=== PATIENT | female | born 1995 | race Caucasian/White ===

== ENCOUNTER 2017-06-29 17:07 | Emergency (ER) | payer MEDICAID ==
[2017-06-29] MEDS ORDERED: diphenhydrAMINE 50 MG/ML SDV IM ONE (17:45)
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
== END 2017-06-29 18:16 | disposition home or self-care (01) ==
LOC: JP.ED 17:07
DX: T78.1XXA Other adverse food reactions, not elsewhere classified, initial encounter (principal); L29.9 Pruritus, unspecified
CPT/HCPCS: 96372; 99283; J1200

== ENCOUNTER 2017-08-20 08:54 | Emergency (ER) | payer MEDICAID ==
[2017-08-20] MEDS ORDERED: Ondansetron 4 MG/2 ML SDV IVPUSH ONE (09:19)
[2017-08-20] MEDS ORDERED: Morphine 4 MG/ML Syringe IVPUSH ONE (09:19)
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
[2017-08-20] MEDS ORDERED: Iopamidol 612 MG/ML 100 ML Bottle IV PRN (10:14)
[2017-08-20] MEDS ORDERED: Sodium Chloride 0.9% 10 ML Syringe FLUSH PRN (10:14)
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
== END 2017-08-20 12:30 | disposition home or self-care (01) ==
LOC: JP.ED 08:54
DX: S30.0XXA Contusion of lower back and pelvis, initial encounter (principal); V49.40XA Driver injured in collision with unspecified motor vehicles in traffic accident, initial encounter
CPT/HCPCS: 36415; 71260; 74177; 80048; 84703; 85025; 96374; 99284; 99285; J2270; J2405; J7030; J7050; Q9967

== ENCOUNTER 2018-01-19 16:37 | Emergency (ER) | payer MEDICAID ==
--- NOTE | 2018-01-19 17:48 | EDM.PDOC ---
ED HPI GENERAL MEDICAL PROBLEM - General Chief Complaint: Respiratory Problem Stated Complaint: CHEST PAINS Time Seen by Provider: 01/19/18 17:25 Source of Information: Reports: Patient, Family History Limitations: Reports: No Limitations - History of Present Illness INITIAL COMMENTS - FREE TEXT/NARRATIVE: 22-year-old female that has had a no significant fevers or chills, no nausea or vomiting. She does have decreased appetite. sore throat and a cough for the past 3 days. She had difficulty sleeping last night because it hurts so bad. Onset: Gradual (Over the past 3 days) Severity: Mild Associated Symptoms: Reports: Cough, Malaise. 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 Denies: Fever, Chills HEENT: Reports: Throat Pain. Denies: Ear Pain, Rhinitis, Throat Swelling Respiratory: Reports: Cough. Denies: Shortness of Breath Cardiovascular: Denies: Chest Pain GI/Abdominal: Denies: Abdominal Pain, Nausea, Vomiting : Reports: No Symptoms Skin: Reports: No Symptoms Neurological: Denies: Headache Psychiatric: Reports: No Symptoms ED EXAM, GENERAL - Physical Exam Exam: See Below Exam Limited By: No Limitations General Appearance: Alert, No Apparent Distress Eye Exam: Bilateral Eye: Normal Inspection Ears: Normal TMs Throat/Mouth: Normal Inspection Head: Atraumatic Neck: No: Lymphadenopathy (R), Lymphadenopathy (L) Respiratory/Chest: No Respiratory Distress Cardiovascular: Regular Rate, Rhythm Course - Vital Signs Last Recorded V/S: Last Vital Signs Temp 98.4 F 01/19/18 17:03 Pulse 52 L 01/19/18 17:03 Resp 16 01/19/18 17:03 BP 113/41 L 01/19/18 17:03 Pulse Ox 98 01/19/18 17:03 - Orders/Labs/Meds Orders: Active Orders 24 hr Category Date Time Status CULTURE STREP A CONFIRMATION [RM] Routine Lab 01/19/18 17:49 Results STREP SCRN A RAPID W CULT CONF [RM] Routine Lab 01/19/18 17:49 Ordered - Re-Assessments/Exams Free Text/Narrative Re-Assessment/Exam: 01/20/18 07:27 Rapid strep was obtained and is negative. Explained to patient this is a viral illness and will have to resolve on its own. Was recommended she use ibuprofen, [id number] throat lozenges and get plenty of fluids and rest. She can return if worsening. Departure - Departure Time of Disposition: 18:57 Disposition: Home, Self-Care 01 Condition: Good Clinical Impression: Viral pharyngitis - Discharge Information Instructions: Viral Illness, Adult Referrals: Juani Escobar CNM [Primary Care Provider] - Forms: ED Department Discharge Care Plan Goals: Drink lots of water, ibuprofen or lozenges for pain and recheck in 2-3 days if not improving satisfactorily. Get plenty of rest. - My Orders Last 24 Hours: My Active Orders 01/19/18 17:49 CULTURE STREP A CONFIRMATION [RM] Routine STREP SCRN A RAPID W CULT CONF [RM] Routine - Assessment/Plan Last 24 Hours: My Active Orders 01/19/18 17:49 CULTURE STREP A CONFIRMATION [RM] Routine STREP SCRN A RAPID W CULT CONF [RM] Routine
== END 2018-01-19 18:58 | disposition home or self-care (01) ==
LOC: JP.ED 16:37
DX: O99.512 Diseases of the respiratory system complicating pregnancy, second trimester (principal); J02.9 Acute pharyngitis, unspecified; Z79.899 Other long term (current) drug therapy; Z3A.18 18 weeks gestation of pregnancy
CPT/HCPCS: 87081; 87430; 99285

== ENCOUNTER 2018-06-16 06:29 | Inpatient (IN) | payer MEDICAID ==
[2018-06-16] MEDS ORDERED: Acetaminophen 325 MG Tab PO PRN ×2 (06:56→23:52)
[2018-06-16] MEDS ORDERED: Ondansetron 4 MG/2 ML SDV IV PRN (06:56)
[2018-06-16] MEDS ORDERED: Sodium Chloride 0.9% 10 ML Syringe FLUSH PRN (06:56)
[2018-06-16] MEDS ORDERED: Misoprostol 50 MCG (1/2 of 100 MCG) Tab VAG ONE ×2 (07:00→15:45)
[2018-06-16] MEDS ORDERED: Misoprostol 25 MCG (1/4 of 100 MCG) Tab ONE (09:50)
[2018-06-16] MEDS ORDERED: Penicillin G Potassium 5 MILLUNITS in Sodium Chloride 0.9% 50 ML IV ONE (11:00)
[2018-06-16] MEDS ORDERED: Misoprostol 25 MCG (1/4 of 100 MCG) Tab VAG STA (11:15)
[2018-06-16] MEDS: Penicillin G Potassium 2.5 MILLUNITS in Sodium Chloride 0.9% 50 ML IV SCH ×3 (14:58→22:56)
[2018-06-16] MEDS ORDERED: Lactated Ringers 1,000 ML IV ONE (17:25)
--- NOTE | 2018-06-16 17:49 | PCM.LDHP ---
L&D History of Present Illness - General Date of Service: 06/16/18 Admit Problem/Dx: Patient Status Order with Admit Dx/Problem 06/16/18 06:56 Patient Status [ADT] Routine Admission Diagnosis/Problem Admission Diagnosis/Problem Source of Information: Patient History Limitations: Reports: No Limitations - Related Data Allergies/Adverse Reactions: Allergies Allergy/AdvReac Type Severity Reaction Status Date / Time blueberry Allergy Swelling Verified 06/15/18 10:10 Home Medications: Home Meds Albuterol [Ventolin HFA] 2 puff INH BID PRN 08/20/17 [History] Sertraline [Zoloft] 25 mg PO DAILY 01/19/18 [History] PNV95/Ferrous Fumarate/FA [ Tablet] 1 tab PO DAILY 02/15/18 [History] Ascorbate Calcium [Vitamin C] 500 mg PO DAILY 05/13/18 [History] Polyethylene Glycol 3350 [Miralax] 17 gm PO DAILY 05/13/18 [History] Past Medical History HEENT History: Reports: Otitis Media Respiratory History: Reports: Asthma 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: Musculoskeletal History: Reports: Other (See Below) Other Musculoskeletal History: acute back pain s/p fall at work on Sunday morning Psychiatric History: Reports: ADHD - Infectious Disease History Infectious Disease History: Reports: Chicken Pox - Past Surgical History HEENT Surgical History: Reports: Myringotomy w Tube(s) Respiratory Surgical History: Reports: None Social & Family History - Family History Family Medical History: Noncontributory - Tobacco Use Smoking Status *Q: Never Smoker Second Hand Smoke Exposure: No - Caffeine Use Caffeine Use: Reports: None - Recreational Drug Use Recreational Drug Use: No H&P Review of Systems - Review of Systems: Review Of Systems: See Below General: Reports: Fatigue HEENT: Reports: Headaches, Visual Changes (spots occasionally) Pulmonary: Reports: No Symptoms Cardiovascular: Reports: Edema Gastrointestinal: Reports: No Symptoms Genitourinary: Reports: No Symptoms Musculoskeletal: Reports: No Symptoms Skin: Reports: No Symptoms Psychiatric: Reports: No Symptoms Neurological: Reports: No Symptoms Hematologic/Lymphatic: Reports: No Symptoms Immunologic: Reports: No Symptoms L&D Exam - Exam Exam: See Below - Vital Signs Vital Signs: Last Vital Signs Temp 36.9 C 06/16/18 16:30 Pulse 82 06/16/18 16:30 Resp 16 06/16/18 16:30 BP 130/67 06/16/18 16:30 Pulse Ox 97 06/16/18 16:30 Weight: 96.615 kg - OB Specific Contraction Duration (sec): 50-60 Contraction Frequency (min): 1.5-2 Contraction Intensity: Moderate to Strong Heart Rate (FHR) Variability: Moderate (6-25 bmp) Presentation: Vertex - Brannon Score Brannon Score Cervix Position: Midposition Brannon Score Consistency: Soft Brannon Score Effacement: 51-70% Brannon Score Dilation: 1-2 cm Brannon Score Infant's Station: -2 Brannon Score Total: 7 - Exam General: Alert, Oriented HEENT: PERRLA, Conjunctiva Clear, EACs Clear, EOMI, Hearing Intact, Mucosa Moist & Metter, Nares Patent, Normal Nasal Septum, Posterior Pharynx Clear, TMs Clear Neck: Supple, Trachea Midline Lungs: Clear to Auscultation, Normal Respiratory Effort Cardiovascular: Regular Rate, Regular Rhythm GI/Abdominal Exam: Normal Bowel Sounds, Soft, Non-Tender, No Organomegaly, No Distention, No Abnormal Bruit, No Mass, Pelvis Stable Rectal Exam: Normal Exam, Normal Rectal Tone Genitourinary: Normal external exam, Normal bimanual exam, Normal speculum exam Back Exam: Normal Inspection, Full Range of Motion Extremities: Normal Inspection, Normal Range of Motion, Non-Tender, Normal Capillary Refill, Other (2-3+ edema bilateral extremities, moonface noted also) Skin: Warm, Dry, Intact Neurological: Cranial Nerves Intact, Reflexes Equal Bilateral DTR: 2+: Patella (L), Patella (R) Psychiatric: Alert, Normal Affect, Normal Mood - Patient Data Lab Results Last 24 hrs: Laboratory Results - last 24 hr 06/16/18 06/16/18 06/16/18 Range/Units 06:56 07:13 07:13 WBC 10.0 (4.5-11.0) K/uL RBC 3.88 (3.30-5.50) M/uL Hgb 11.6 L (12.0-15.0) g/dL Hct 35.1 L (36.0-48.0) % MCV 91 (80-98) fL MCH 30 (27-31) pg MCHC 33 (32-36) % Plt Count 188 (150-400) K/uL Neut % (Auto) 66 (36-66) % Lymph % (Auto) 22 L (24-44) % Crawford % (Auto) 11 H (2-6) % Eos % (Auto) 1 L (2-4) % Baso % (Auto) 0 (0-1) % Sodium 140 (140-148) mmol/L Potassium 4.1 (3.6-5.2) mmol/L Chloride 106 (100-108) mmol/L Carbon Dioxide 25 (21-32) mmol/L Anion Gap 9.3 (5.0-14.0) mmol/L BUN 12 (7-18) mg/dL Creatinine 0.7 (0.6-1.0) mg/dL Est Cr Clr Drug Dosing TNP Estimated GFR (MDRD) > 60 (>60) Glucose 87 (74-106) mg/dL Uric Acid (2.6-6.2) mg/dL Calcium 9.4 (8.5-10.1) mg/dL Total Bilirubin 0.1 L (0.2-1.0) mg/dL AST 12 L (15-37) U/L ALT 18 (12-78) U/L Alkaline Phosphatase 92 (46-116) U/L Lactate Dehydrogenase 158 (82-234) U/L Total Protein 5.9 L (6.4-8.2) g/dL Albumin 2.4 L (3.4-5.0) g/dL Globulin 3.5 (2.3-3.5) g/dL Albumin/Globulin Ratio 0.7 L (1.2-2.2) Urine Color Yellow Urine Appearance Slightly cloudy Urine pH 7.0 (4.5-8.0) Ur Specific [place] 1.010 (1.008-1.030) Urine Protein Negative (NEGATIVE) mg/dL Urine Glucose (UA) Normal (NEGATIVE) mg/dL Urine Ketones Negative (NEGATIVE) mg/dL Urine Occult Blood Negative (NEGATIVE) Urine Nitrite Negative (NEGATIVE) Urine Bilirubin Negative (NEGATIVE) Urine Urobilinogen Normal (NORMAL) mg/dL Ur Leukocyte Esterase Large (NEGATIVE) Urine RBC Not seen (0-5) Urine WBC 20-30 H (0-5) Ur Epithelial Cells Many Amorphous Sediment Not seen Urine Bacteria Many Urine Mucus Not seen Urine Opiates Screen (NEGATIVE) Ur Oxycodone Screen (NEGATIVE) Urine Methadone Screen (NEGATIVE) Ur Propoxyphene Screen (NEGATIVE) Ur Barbiturates Screen (NEGATIVE) Ur Tricyclics Screen (NEGATIVE) Ur Phencyclidine Scrn (NEGATIVE) Ur Amphetamine Screen (NEGATIVE) U Methamphetamines Scrn (NEGATIVE) Urine MDMA Screen (NEGATIVE) U Benzodiazepines Scrn (NEGATIVE) U Cocaine Metab Screen (NEGATIVE) U Marijuana (THC) Screen (NEGATIVE) 06/16/18 06/16/18 Range/Units 07:13 08:04 WBC (4.5-11.0) K/uL RBC (3.30-5.50) M/uL Hgb (12.0-15.0) g/dL Hct (36.0-48.0) % MCV (80-98) fL MCH (27-31) pg MCHC (32-36) % Plt Count (150-400) K/uL Neut % (Auto) (36-66) % Lymph % (Auto) (24-44) % Crawford % (Auto) (2-6) % Eos % (Auto) (2-4) % Baso % (Auto) (0-1) % Sodium (140-148) mmol/L Potassium (3.6-5.2) mmol/L Chloride (100-108) mmol/L Carbon Dioxide (21-32) mmol/L Anion Gap (5.0-14.0) mmol/L BUN (7-18) mg/dL Creatinine (0.6-1.0) mg/dL Est Cr Clr Drug Dosing Estimated GFR (MDRD) (>60) Glucose (74-106) mg/dL Uric Acid 5.5 (2.6-6.2) mg/dL Calcium (8.5-10.1) mg/dL Total Bilirubin (0.2-1.0) mg/dL AST (15-37) U/L ALT (12-78) U/L Alkaline Phosphatase (46-116) U/L Lactate Dehydrogenase (82-234) U/L Total Protein (6.4-8.2) g/dL Albumin (3.4-5.0) g/dL Globulin (2.3-3.5) g/dL Albumin/Globulin Ratio (1.2-2.2) Urine Color Urine Appearance Urine pH (4.5-8.0) Ur Specific [place] (1.008-1.030) Urine Protein (NEGATIVE) mg/dL Urine Glucose (UA) (NEGATIVE) mg/dL Urine Ketones (NEGATIVE) mg/dL Urine Occult Blood (NEGATIVE) Urine Nitrite (NEGATIVE) Urine Bilirubin (NEGATIVE) Urine Urobilinogen (NORMAL) mg/dL Ur Leukocyte Esterase (NEGATIVE) Urine RBC (0-5) Urine WBC (0-5) Ur Epithelial Cells Amorphous Sediment Urine Bacteria Urine Mucus Urine Opiates Screen Negative (NEGATIVE) Ur Oxycodone Screen Negative (NEGATIVE) Urine Methadone Screen Negative (NEGATIVE) Ur Propoxyphene Screen Negative (NEGATIVE) Ur Barbiturates Screen Negative (NEGATIVE) Ur Tricyclics Screen Negative (NEGATIVE) Ur Phencyclidine Scrn Negative (NEGATIVE) Ur Amphetamine Screen Negative (NEGATIVE) U Methamphetamines Scrn Negative (NEGATIVE) Urine MDMA Screen Negative (NEGATIVE) U Benzodiazepines Scrn Negative (NEGATIVE) U Cocaine Metab Screen Negative (NEGATIVE) U Marijuana (THC) Screen Negative (NEGATIVE) Result Diagrams: 06/16/18 07:13 06/16/18 07:13 - Problem List (1) Gestational hypertension SNOMED Code(s): 663633347, 095141904 ICD Code: O13.9 - GESTATIONAL HTN W/O SIGNIFICANT PROTEINURIA, UNSP TRIMESTER Status: Acute Current Visit: Yes Qualifiers: Trimester: third trimester Qualified Code(s): O13.3 - Gestational [ -induced] hypertension without significant proteinuria, third trimester (2) Headache SNOMED Code(s): 90351660 ICD Code: R51 - HEADACHE Status: Acute Current Visit: Yes (3) Edema SNOMED Code(s): 041602542, 865840656 ICD Code: R60.9 - EDEMA, UNSPECIFIED Status: Acute Current Visit: Yes Qualifiers: Edema type: gestational Trimester: third trimester Qualified Code(s): O12.03 - Gestational edema, third trimester (4) Abnormal weight gain during SNOMED Code(s): 384211140 ICD Code: O26.00 - EXCESSIVE WEIGHT GAIN IN , UNSPECIFIED TRIMESTER Status: Acute Current Visit: Yes (5) SNOMED Code(s): 09816840 ICD Code: Z34.90 - ENCNTR FOR SUPRVSN OF NORMAL , UNSP, UNSP TRIMESTER Status: Acute Current Visit: Yes Qualifiers: Weeks of gestation: 40 weeks Qualified Code(s): Z3A.40 - 40 weeks gestation of (6) Encounter for induction of labor SNOMED Code(s): 713170331 ICD Code: Z34.90 - ENCNTR FOR SUPRVSN OF NORMAL , UNSP, UNSP TRIMESTER Status: Acute Current Visit: Yes Problem List Initiated/Reviewed/Updated: Yes Orders Last 24hrs: Active Orders 24 hr Category Date Time Status Patient Status [ADT] Routine ADT 06/16/18 06:56 Active Communication Order [RC] ASDIRECTED Care 06/16/18 06:56 Active Communication Order [RC] Per Unit Routine Care 06/16/18 17:26 Ordered Non Stress Test [RC] Click to Edit Care 06/16/18 06:56 Active Insert Urinary Catheter [OM.PC] ASDIRECTED Care 06/16/18 17:30 Ordered Local Anesthetic Infusion Pump [RC] ASDIRECTED Care 06/16/18 17:26 Ordered May Shower [RC] ASDIRECTED Care 06/16/18 06:56 Active Notify Provider Vital Signs [RC] PRN Care 06/16/18 06:56 Active Notify Provider [RC] PRN Care 06/16/18 06:56 Active PCEA Epidural [RC] ASDIRECTED Care 06/16/18 17:26 Ordered PCEA Epidural [RC] ASDIRECTED Care 06/16/18 17:26 Ordered Up ad Jazmin [RC] ASDIRECTED Care 06/16/18 06:56 Active Urinary Catheter Assessment [RC] ASDIRECTED Care 06/16/18 17:26 Ordered VTE/DVT Education [RC] Click to Edit Care 06/16/18 06:57 Active Verify Patient Consent Obtain [RC] ASDIRECTED Care 06/16/18 17:26 Ordered Vital Signs [RC] PER UNIT ROUTINE Care 06/16/18 06:56 Active Regular Diet [DIET] Diet 06/16/18 Breakfast Active Acetaminophen [Tylenol] Med 06/16/18 06:56 Active 650 mg PO Q4H PRN Lactated Ringers [Ringers, Lactated] 1,000 ml Med 06/16/18 17:25 Ordered IV ONETIME Ondansetron [Zofran] Med 06/16/18 06:56 Active 4 mg IV Q4H PRN Penicillin G Potassium [Pfizerpen] 2.5 millunits Med 06/16/18 15:00 Active Sodium Chloride 0.9% [Normal Saline] 50 ml IV Q4H Sodium Chloride 0.9% [Saline Flush] Med 06/16/18 06:56 Active 10 ml FLUSH ASDIRECTED PRN ePHEDrine [ePHEDrine sulfate] Med 06/16/18 17:25 Once 5 mg IVPUSH ONETIME ONE DVT/VTE Prophylaxis Reflex [OM.PC] Routine Oth 06/16/18 06:56 Ordered Epidural Catheter Management [OM.PC] Urgent Oth 06/16/18 17:26 Ordered Saline Lock Insert [OM.PC] Routine Oth 06/16/18 06:56 Ordered Resuscitation Status Routine Resus Stat 06/16/18 06:56 Ordered Medication Orders Acetaminophen (Tylenol) 650 mg PO Q4H PRN PRN Reason: Pain (Mild 1-3) and fever Penicillin G Potassium 2.5 (millunits/ Sodium Chloride) 50 mls @ 100 mls/hr IV Q4H CHRIS Last Admin: 06/16/18 14:58 Dose: 100 mls/hr Ondansetron HCl (Zofran) 4 mg IV Q4H PRN PRN Reason: Nausea/Vomiting Sodium Chloride (Saline Flush) 10 ml FLUSH ASDIRECTED PRN PRN Reason: Keep Vein Open Assessment/Plan Comment:: 06/16/2018 22 yo here at 40 0/7 gestational weeks for a medical induction due to gestational hypertensions, pre-eclampsia, elevated 24 hour protein, and 20+ weight gain in less than three weeks, on 06/16/2018 SVE-1/70/-2 FHTs category one Contractions irregular Cytotec placed vaginally Plan- Monitor for active labor Monitor FHTs Monitor vital signs closely, reflexes and clonus regularly CBC, CMP,LDH, UA Pain management per patient request Plan on placing another cytotec later Plan and anticipate a vaginal delivery
--- NOTE | 2018-06-16 17:54 | PCM.PNLD ---
Labor Progress Note - VS & Meds Vital Signs: Last Vital Signs Temp 36.8 C 06/16/18 17:30 Pulse 82 06/16/18 17:30 Resp 16 06/16/18 17:30 BP 144/72 H 06/16/18 17:30 Pulse Ox 94 L 06/16/18 17:30 Active Medications: Current Medications Acetaminophen (Tylenol) 650 mg PO Q4H PRN PRN Reason: Pain (Mild 1-3) and fever Penicillin G Potassium 2.5 (millunits/ Sodium Chloride) 50 mls @ 100 mls/hr IV Q4H CHRIS Last Admin: 06/16/18 14:58 Dose: 100 mls/hr Lactated Ringer's (Ringers, Lactated) 1,000 mls @ 999 mls/hr IV ONETIME ONE Stop: 06/16/18 18:25 Ondansetron HCl (Zofran) 4 mg IV Q4H PRN PRN Reason: Nausea/Vomiting Sodium Chloride (Saline Flush) 10 ml FLUSH ASDIRECTED PRN PRN Reason: Keep Vein Open Discontinued Medications Ephedrine Sulfate (Ephedrine Sulfate) 5 mg IVPUSH ONETIME ONE Stop: 06/16/18 17:26 Penicillin G Potassium 5 (millunits/ Sodium Chloride) 50 mls @ 100 mls/hr IV ONETIME ONE Stop: 06/16/18 11:29 Last Admin: 06/16/18 10:57 Dose: 100 mls/hr Misoprostol (Cytotec) 50 mcg VAG ONETIME ONE Stop: 06/16/18 07:01 Last Admin: 06/16/18 11:14 Dose: Not Given Misoprostol (Cytotec) Confirm Administered Dose 25 mcg .ROUTE .STK-MED ONE Stop: 06/16/18 09:51 Last Admin: 06/16/18 11:15 Dose: Not Given Misoprostol (Cytotec) 25 mcg VAG ONETIME STA Stop: 06/16/18 11:16 Last Admin: 06/16/18 10:00 Dose: 25 mcg Misoprostol (Cytotec) 50 mcg VAG ONETIME ONE Stop: 06/16/18 15:46 Last Admin: 06/16/18 15:57 Dose: 50 mcg - Uterine Contractions Uterine Monitoring Mode: External [place] Contraction Frequency (min): 1.5-2 Contraction Duration (sec): 50-60 Contraction Intensity: Moderate to Strong Uterine Resting Tone: Soft - Monitoring Heart Rate (FHR) Variability: Moderate (6-25 bmp) - Vaginal Exam Dilation (cm): 3 Effacement (Percent): 70 Station: -2 Cervical Position: Midposition Sterile Vaginal Exam Performed By: Juani Escobar - Labor Progress (Free Text) Labor Progress: 06/16/2018 Patient progressing nicely SVE-3/70/-2 Cytotec placed vaginally FHTs category one Contractions getting more regular Patient tolerating pain with movement and position change Plan- Continue to monitor for active labor Continue to monitor FHTs Pain management per patient request Patient may eat regular diet Up ad choco Will start pitocin in four hours per protocol if no active labor Plan and anticipate a vaginal delivery
[2018-06-16] MEDS ORDERED: Ropivacaine 200 MG in Premix Bag 1 BAG EPIDUR SCH (19:45)
[2018-06-16] MEDS ORDERED: Lactated Ringers 1,000 ML IV SCH (20:00)
[2018-06-16] MEDS: ePHEDrine 50 MG/ML SDV IVPUSH ONE ×2 (20:43→21:12)
[2018-06-16] MEDS ORDERED: Lanolin 100% Cream 40 GM Tube TOP PRN (23:52)
[2018-06-16] MEDS ORDERED: Benzocaine 20% Top Spray 56 GM Bottle TOP PRN (23:52)
[2018-06-16] MEDS ORDERED: Ibuprofen 200 MG Tab, 24 Tab Bulk Bottle PO PRN (23:52)
[2018-06-16] MEDS ORDERED: Witch Hazel Medicated Pads 100/Jar TOP PRN (23:52)
--- NOTE | 2018-06-17 00:12 | PCM.DEL ---
L & D Note - General Info Date of Service: 06/16/18 Mother's Due Date: 06/16/18 - Delivery Note Cervical Ripening Method: Misoprostil Delivery Outcome: Livebirth Delivery Method: Spontaneous Vaginal Delivery-Single Delivery Mode: Spontaneous Presentation: Left Occiput Anterior (NICKO) Nuchal Cord: None Anesthesia Type: Epidural Laceration: None Placenta: Intact, Spontaneous Cord: 3 Vessels Estimated Blood Loss: 300 Resuscitation Needed: No Lillie: Stimulated, Warmed, [place] Used Provider: Juani Escobar Score 1 min: 9 Score 5 min: 9 Second Stage Interventions: Reports: Encouragement Given, Pushing Effectively, Pushing, McRobert's Position Delivery Comments (Free Text/Narrative):: 06/16/2018 22 yo delivered a viable male normal spontaneous vaginal delivery on 06/16/2018 at 2328 in NICKO position over an intact perineum. Infant was then placed on prewarmed blanket on mothers abdomen, was stimulated, dried, and warmed. then began to pink in color and cry vigorously. Cord then double clamped and cut after delayed cord clamping. APGARS-9/9, weight-7lbs 8.2oz, length-19.9 inches, Placenta spontaneous and intact, three vessel cord. EBL-300ml. No lacerations noted of cervix, vagina, perineum, or rectum. Infant now skin to skin and stable with mother in labor and delivery room. Stages- [id number] - General Info Date of Service: 06/16/18 Functional Status: Reports: Pain Controlled - Review of Systems General: Reports: No Symptoms HEENT: Reports: Headaches Pulmonary: Reports: No Symptoms Cardiovascular: Reports: Edema Gastrointestinal: Reports: No Symptoms Genitourinary: Reports: No Symptoms Musculoskeletal: Reports: No Symptoms Skin: Reports: No Symptoms Neurological: Reports: No Symptoms Psychiatric: Reports: No Symptoms - Patient Data Vitals - Most Recent: Last Vital Signs Temp 36.9 C 06/16/18 20:11 Pulse 76 06/16/18 20:21 Resp 18 06/16/18 20:21 BP 135/61 06/16/18 20:21 Pulse Ox 96 06/16/18 20:21 Weight - Most Recent: 96.615 kg I&O - Last 24 Hours: Intake & Output 06/16/18 06/16/18 06/17/18 14:59 22:59 06:59 Intake Total 1932 Balance 1932 Lab Results Last 24 Hours: Laboratory Results - last 24 hr 06/16/18 06/16/18 06/16/18 Range/Units 06:56 07:13 07:13 WBC 10.0 (4.5-11.0) K/uL RBC 3.88 (3.30-5.50) M/uL Hgb 11.6 L (12.0-15.0) g/dL Hct 35.1 L (36.0-48.0) % MCV 91 (80-98) fL MCH 30 (27-31) pg MCHC 33 (32-36) % Plt Count 188 (150-400) K/uL Neut % (Auto) 66 (36-66) % Lymph % (Auto) 22 L (24-44) % [place] % (Auto) 11 H (2-6) % Eos % (Auto) 1 L (2-4) % Baso % (Auto) 0 (0-1) % Sodium 140 (140-148) mmol/L Potassium 4.1 (3.6-5.2) mmol/L Chloride 106 (100-108) mmol/L Carbon Dioxide 25 (21-32) mmol/L Anion Gap 9.3 (5.0-14.0) mmol/L BUN 12 (7-18) mg/dL Creatinine 0.7 (0.6-1.0) mg/dL Est Cr Clr Drug Dosing TNP Estimated GFR (MDRD) > 60 (>60) Glucose 87 (74-106) mg/dL Uric Acid (2.6-6.2) mg/dL Calcium 9.4 (8.5-10.1) mg/dL Total Bilirubin 0.1 L (0.2-1.0) mg/dL AST 12 L (15-37) U/L ALT 18 (12-78) U/L Alkaline Phosphatase 92 (46-116) U/L Lactate Dehydrogenase 158 (82-234) U/L Total Protein 5.9 L (6.4-8.2) g/dL Albumin 2.4 L (3.4-5.0) g/dL Globulin 3.5 (2.3-3.5) g/dL Albumin/Globulin Ratio 0.7 L (1.2-2.2) Urine Color Yellow Urine Appearance Slightly cloudy Urine pH 7.0 (4.5-8.0) Ur Specific [place] 1.010 (1.008-1.030) Urine Protein Negative (NEGATIVE) mg/dL Urine Glucose (UA) Normal (NEGATIVE) mg/dL Urine Ketones Negative (NEGATIVE) mg/dL Urine Occult Blood Negative (NEGATIVE) Urine Nitrite Negative (NEGATIVE) Urine Bilirubin Negative (NEGATIVE) Urine Urobilinogen Normal (NORMAL) mg/dL Ur Leukocyte Esterase Large (NEGATIVE) Urine RBC Not seen (0-5) Urine WBC 20-30 H (0-5) Ur Epithelial Cells Many Amorphous Sediment Not seen Urine Bacteria Many Urine Mucus Not seen Urine Opiates Screen (NEGATIVE) Ur Oxycodone Screen (NEGATIVE) Urine Methadone Screen (NEGATIVE) Ur Propoxyphene Screen (NEGATIVE) Ur Barbiturates Screen (NEGATIVE) Ur Tricyclics Screen (NEGATIVE) Ur Phencyclidine Scrn (NEGATIVE) Ur Amphetamine Screen (NEGATIVE) U Methamphetamines Scrn (NEGATIVE) Urine MDMA Screen (NEGATIVE) U Benzodiazepines Scrn (NEGATIVE) U Cocaine Metab Screen (NEGATIVE) U Marijuana (THC) Screen (NEGATIVE) 06/16/18 06/16/18 Range/Units 07:13 08:04 WBC (4.5-11.0) K/uL RBC (3.30-5.50) M/uL Hgb (12.0-15.0) g/dL Hct (36.0-48.0) % MCV (80-98) fL MCH (27-31) pg MCHC (32-36) % Plt Count (150-400) K/uL Neut % (Auto) (36-66) % Lymph % (Auto) (24-44) % [place] % (Auto) (2-6) % Eos % (Auto) (2-4) % Baso % (Auto) (0-1) % Sodium (140-148) mmol/L Potassium (3.6-5.2) mmol/L Chloride (100-108) mmol/L Carbon Dioxide (21-32) mmol/L Anion Gap (5.0-14.0) mmol/L BUN (7-18) mg/dL Creatinine (0.6-1.0) mg/dL Est Cr Clr Drug Dosing Estimated GFR (MDRD) (>60) Glucose (74-106) mg/dL Uric Acid 5.5 (2.6-6.2) mg/dL Calcium (8.5-10.1) mg/dL Total Bilirubin (0.2-1.0) mg/dL AST (15-37) U/L ALT (12-78) U/L Alkaline Phosphatase (46-116) U/L Lactate Dehydrogenase (82-234) U/L Total Protein (6.4-8.2) g/dL Albumin (3.4-5.0) g/dL Globulin (2.3-3.5) g/dL Albumin/Globulin Ratio (1.2-2.2) Urine Color Urine Appearance Urine pH (4.5-8.0) Ur Specific [place] (1.008-1.030) Urine Protein (NEGATIVE) mg/dL Urine Glucose (UA) (NEGATIVE) mg/dL Urine Ketones (NEGATIVE) mg/dL Urine Occult Blood (NEGATIVE) Urine Nitrite (NEGATIVE) Urine Bilirubin (NEGATIVE) Urine Urobilinogen (NORMAL) mg/dL Ur Leukocyte Esterase (NEGATIVE) Urine RBC (0-5) Urine WBC (0-5) Ur Epithelial Cells Amorphous Sediment Urine Bacteria Urine Mucus Urine Opiates Screen Negative (NEGATIVE) Ur Oxycodone Screen Negative (NEGATIVE) Urine Methadone Screen Negative (NEGATIVE) Ur Propoxyphene Screen Negative (NEGATIVE) Ur Barbiturates Screen Negative (NEGATIVE) Ur Tricyclics Screen Negative (NEGATIVE) Ur Phencyclidine Scrn Negative (NEGATIVE) Ur Amphetamine Screen Negative (NEGATIVE) U Methamphetamines Scrn Negative (NEGATIVE) Urine MDMA Screen Negative (NEGATIVE) U Benzodiazepines Scrn Negative (NEGATIVE) U Cocaine Metab Screen Negative (NEGATIVE) U Marijuana (THC) Screen Negative (NEGATIVE) Med Orders - Current: Current Medications Acetaminophen (Tylenol) 650 mg PO Q4H PRN PRN Reason: Pain (Mild 1-3) and fever Acetaminophen (Tylenol Bulk Bottle) 325 mg PO Q4H PRN PRN Reason: Pain Benzocaine (Hthe-N-Bnelobi 20% [place]) 0 gm TOP Q4H PRN PRN Reason: Perineal Comfort Measure Docusate Sodium (Colace) 100 mg PO BID PRN PRN Reason: Constipation Emollient Ointment (Lansinoh Hpa) 1 gm TOP ASDIRECTED PRN PRN Reason: Sore Nipples Penicillin G Potassium 2.5 (millunits/ Sodium Chloride) 50 mls @ 100 mls/hr IV Q4H [facility] Last Admin: 06/16/18 22:56 Dose: 100 mls/hr Ropivacaine 200 mg/ Premix 100 mls @ 0 mls/hr EPIDUR ASDIRECTED [facility] Last Admin: 06/16/18 20:23 Dose: 12 mls/hr Lactated Ringer's (Ringers, Lactated) 1,000 mls @ 0 mls/hr IV ASDIRECTED [facility] Last Admin: 06/16/18 20:24 Dose: 25 mls/hr Oxytocin/Sodium Chloride (Pitocin In Ns 20 Units/1,000 Ml) 20 unit in 1,000 mls @ 6 mls/hr IV TITRATE [facility]; Protocol Oxytocin/Sodium Chloride (Pitocin In Ns 20 Units/1,000 Ml) 20 unit in 1,000 mls @ 2,997 mls/hr IV ONETIME ONE; Protocol Stop: 06/17/18 00:16 Ibuprofen (Motrin Bulk Bottle) 600 mg PO Q6H PRN PRN Reason: Pain Ondansetron HCl (Zofran) 4 mg IV Q4H PRN PRN Reason: Nausea/Vomiting Sodium Chloride (Saline Flush) 10 ml FLUSH ASDIRECTED PRN PRN Reason: Keep Vein Open Witned Hsu (Tucks) 1 pad TOP ASDIRECTED PRN PRN Reason: Hemorrhoids Discontinued Medications Ephedrine Sulfate (Ephedrine Sulfate) 5 mg IVPUSH ONETIME ONE Stop: 06/16/18 17:26 Last Admin: 06/16/18 21:12 Dose: 5 mg Penicillin G Potassium 5 (millunits/ Sodium Chloride) 50 mls @ 100 mls/hr IV ONETIME ONE Stop: 06/16/18 11:29 Last Admin: 06/16/18 10:57 Dose: 100 mls/hr Lactated Ringer's (Ringers, Lactated) 1,000 mls @ 999 mls/hr IV ONETIME ONE Stop: 06/16/18 18:25 Last Admin: 06/16/18 18:53 Dose: 999 mls/hr Misoprostol (Cytotec) 50 mcg VAG ONETIME ONE Stop: 06/16/18 07:01 Last Admin: 06/16/18 11:14 Dose: Not Given Misoprostol (Cytotec) Confirm Administered Dose 25 mcg .ROUTE .STK-MED ONE Stop: 06/16/18 09:51 Last Admin: 06/16/18 11:15 Dose: Not Given Misoprostol (Cytotec) 25 mcg VAG ONETIME STA Stop: 06/16/18 11:16 Last Admin: 06/16/18 10:00 Dose: 25 mcg Misoprostol (Cytotec) 50 mcg VAG ONETIME ONE Stop: 06/16/18 15:46 Last Admin: 06/16/18 15:57 Dose: 50 mcg - Exam General: Alert, Oriented, Cooperative HEENT: Pupils Equal, Pupils Reactive, EOMI, Mucous Membr. Moist/[place] Neck: Supple Lungs: Clear to Auscultation, Normal Respiratory Effort Cardiovascular: Regular Rate, Regular Rhythm GI/Abdominal Exam: Normal Bowel Sounds, Soft, Non-Tender, No Organomegaly, No Distention, No Abnormal Bruit, No Mass, Pelvis Stable (Female) Exam: Normal External Exam, Normal Speculum Exam, Normal Bimanual Exam, Enlarged Uterus, Vaginal Bleeding Back Exam: Normal Inspection, Full Range of Motion Extremities: Normal Inspection, Normal Range of Motion, Non-Tender, Normal Capillary Refill, Other (2+edema from knees down, moonface also noted) Skin: Warm, Dry, Intact Neurological: No New Focal Deficit Psy/Mental Status: Alert, Normal Affect, Normal Mood - Problem List & Annotations (1) Gestational hypertension SNOMED Code(s): 956284391, 164420093 Code(s): O13.9 - GESTATIONAL HTN W/O SIGNIFICANT PROTEINURIA, UNSP TRIMESTER Status: Acute Current Visit: Yes Qualifiers: Trimester: third trimester Qualified Code(s): O13.3 - Gestational [ -induced] hypertension without significant proteinuria, third trimester (2) Headache SNOMED Code(s): 92711920 Code(s): R51 - HEADACHE Status: Acute Current Visit: Yes (3) Edema SNOMED Code(s): 643228421, 441174128 Code(s): R60.9 - EDEMA, UNSPECIFIED Status: Acute Current Visit: Yes Qualifiers: Edema type: gestational Trimester: third trimester Qualified Code(s): O12.03 - Gestational edema, third trimester (4) Abnormal weight gain during SNOMED Code(s): 409961390 Code(s): O26.00 - EXCESSIVE WEIGHT GAIN IN , UNSPECIFIED TRIMESTER Status: Acute Current Visit: Yes (5) SNOMED Code(s): 33051523 Code(s): Z34.90 - ENCNTR FOR SUPRVSN OF NORMAL , UNSP, UNSP TRIMESTER Status: Acute Current Visit: Yes Qualifiers: Weeks of gestation: 40 weeks Qualified Code(s): Z3A.40 - 40 weeks gestation of (6) Encounter for induction of labor SNOMED Code(s): 490270360 Code(s): Z34.90 - ENCNTR FOR SUPRVSN OF NORMAL , UNSP, UNSP TRIMESTER Status: Acute Current Visit: Yes (7) Normal vaginal delivery SNOMED Code(s): 22352784 Code(s): O80 - ENCOUNTER FOR FULL-TERM UNCOMPLICATED DELIVERY Status: Acute Current Visit: Yes (8) [place] placenta SNOMED Code(s): 80980400 Code(s): WAH5322 - Status: Acute Current Visit: No (9) Preeclampsia SNOMED Code(s): 654613012 Code(s): O14.90 - UNSPECIFIED PRE-ECLAMPSIA, UNSPECIFIED TRIMESTER Status: Acute Current Visit: Yes (10) Positive GBS test SNOMED Code(s): 9508027658108, 2216777358103 Code(s): B95.1 - STREPTOCOCCUS, GROUP B, CAUSING DISEASES CLASSD ELSWHR Status: Acute Current Visit: Yes - Problem List Review Problem List Initiated/Reviewed/Updated: Yes - My Orders Last 24 Hours: My Active Orders 06/16/18 06:56 Patient Status [ADT] Routine Communication Order [RC] ASDIRECTED Non Stress Test [RC] Click to Edit May Shower [RC] ASDIRECTED Notify Provider Vital Signs [RC] PRN Notify Provider [RC] PRN Up ad Jazmin [RC] ASDIRECTED Vital Signs [RC] PER UNIT ROUTINE Acetaminophen [Tylenol] 650 mg PO Q4H PRN Ondansetron [Zofran] 4 mg IV Q4H PRN Sodium Chloride 0.9% [Saline Flush] 10 ml FLUSH ASDIRECTED PRN DVT/VTE Prophylaxis Reflex [OM.PC] Routine Saline Lock Insert [OM.PC] Routine Resuscitation Status Routine 06/16/18 06:57 VTE/DVT Education [RC] Click to Edit 06/16/18 15:00 Penicillin G Potassium [Pfizerpen] 2.5 millunits Sodium Chloride 0.9% [Normal Saline] 50 ml IV Q4H 06/16/18 17:26 Communication Order [RC] Per Unit Routine Local Anesthetic Infusion Pump [RC] ASDIRECTED PCEA Epidural [RC] ASDIRECTED PCEA Epidural [RC] ASDIRECTED Urinary Catheter Assessment [RC] ASDIRECTED Verify Patient Consent Obtain [RC] ASDIRECTED Epidural Catheter Management [OM.PC] Urgent 06/16/18 17:30 Insert Urinary Catheter [OM.PC] ASDIRECTED 06/16/18 20:00 Lactated Ringers [Ringers, Lactated] 1,000 ml IV ASDIRECTED 06/16/18 20:45 Oxytocin/Normal Saline [Pitocin in NS 20 Units/1,000 ML] 20 unit in 1,000 ml IV TITRATE 06/16/18 23:52 Patient Status [ADT] Routine Vital Signs [RC] PFP Acetaminophen [Tylenol Bulk Bottle] 325 mg PO Q4H PRN Benzocaine [Sjtv-Y-Oggjjat 20% [place]] See Dose Instructions TOP Q4H PRN Docusate Sodium [Colace] 100 mg PO BID PRN Ibuprofen [Motrin Bulk Bottle] 600 mg PO Q6H PRN Lanolin [Lansinoh HPA] 1 gm TOP ASDIRECTED PRN Witch Aracelis [Tucks] 1 pad TOP ASDIRECTED PRN Assess Lochia [WOMSER] Per Unit Routine Assess Uterine Involution [WOMSER] Per Unit Routine 06/16/18 23:53 Perineal Care [OM.PC] Per Unit Routine 06/16/18 23:56 Oxytocin/Normal Saline [Pitocin in NS 20 Units/1,000 ML] 20 unit in 1,000 ml IV ONETIME 06/16/18 Breakfast Regular Diet [DIET] 06/17/18 06:00 CBC WITH AUTO DIFF [HEME] Routine - Assessment Assessment:: 06/16/2018 22 yo G2 now P2 healthy normal male without complications Preeclampsia with proteinuria and edema Excess weight gain GBS positive Labs-A positive, Hep B neg, Hep C neg, HIV neg, RPR nonreactive, GBS positive - Plan Plan:: 06/16/2018 22 yo here at 40 0/7 gestational weeks for a medical induction due to gestational hypertensions, pre-eclampsia, elevated 24 hour protein, and 20+ weight gain in less than three weeks, on 06/16/2018 SVE-1/70/-2 FHTs category one Contractions irregular Cytotec placed vaginally Plan- Monitor for active labor Monitor FHTs Monitor vital signs closely, reflexes and clonus regularly CBC, CMP,LDH, UA Pain management per patient request Plan on placing another cytotec later Plan and anticipate a vaginal delivery 06/16/2018 Routine cares 48 hour stay for GBS positive
[2018-06-17] MEDS ORDERED: Acetaminophen 325 MG Tab, 50 Tab Bulk Bottle PO PRN (00:13)
--- NOTE | 2018-06-17 02:46 | ANES ---
DATE OF SERVICE: 06/16/2018 INDICATIONS: This is a 22-year-old lady in obstetrical suite in an active labor. I was asked to place a labor epidural by Juani Escobar CNM. This is her 2nd , 2nd child. Her 1st one, she sounds like she had a saddle block at the end of her labor. We are today going to do an epidural. This was explained to her in detail. All questions were answered. Consent was signed. TECHNIQUE: She was placed in the sitting position and after a Betadine solution prep, the epidural was accomplished what I believe is L4-L5 x1 with a good feel. No paresthesia. No CSF. No blood. Lidocaine 1.5%, 5 mL with epinephrine 1:200,000 was injected through the epidural needle. The epidural catheter was then passed with ease to the four steve. The needle was removed. Catheter was taped in place. She was laid back supine and she was given a bolus of ropivacaine 0.2% 15 mL over approximately 2 minutes. She was then hooked up to a continuous infusion of ropivacaine 0.2% infusing at 12 mL/h. She tolerated the procedure well. Javier aNir CRNA /[id number]
[2018-06-17] MEDS: Penicillin G Potassium 2.5 MILLUNITS in Sodium Chloride 0.9% 50 ML IV SCH (03:34)
[2018-06-17] MEDS: Docusate Sodium 100 MG Cap PO PRN (07:25)
--- NOTE | 2018-06-17 07:56 | PCM.PNPP ---
- General Info Date of Service: 06/17/18 (PPD 1 childbirt at 2328 last night) Admission Dx/Problem (Free Text): Patient Status Order with Admit Dx/Problem 06/16/18 06:56 Patient Status [ADT] Routine Admission Diagnosis/Problem Admission Diagnosis/Problem Functional Status: Reports: Pain Controlled - Review of Systems General: Reports: No Symptoms HEENT: Reports: No Symptoms Pulmonary: Reports: No Symptoms Cardiovascular: Reports: No Symptoms Gastrointestinal: Reports: No Symptoms Genitourinary: Reports: No Symptoms Musculoskeletal: Reports: No Symptoms Skin: Reports: No Symptoms Neurological: Reports: No Symptoms Psychiatric: Reports: No Symptoms - General Info Date of Service: 06/17/18 - Patient Data Vital Signs - Most Recent: Last Vital Signs Temp 97.0 F 06/17/18 07:28 Pulse 56 L 06/17/18 07:28 Resp 18 06/17/18 07:28 BP 114/84 06/17/18 07:28 Pulse Ox 99 06/17/18 07:28 Weight - Most Recent: 213 lb I&O - Last 24 Hours: Intake & Output 06/16/18 06/17/18 06/17/18 22:59 06:59 14:59 Intake Total 4077 Output Total 400 Balance 3677 Lab Results - Last 24 Hours: Laboratory Results - last 24 hr 06/16/18 06/16/18 06/17/18 Range/Units 06:56 08:04 05:00 WBC 14.9 H (4.5-11.0) K/uL RBC 3.82 (3.30-5.50) M/uL Hgb 11.3 L (12.0-15.0) g/dL Hct 34.3 L (36.0-48.0) % MCV 90 (80-98) fL MCH 30 (27-31) pg MCHC 33 (32-36) % Plt Count 165 (150-400) K/uL Neut % (Auto) 79 H (36-66) % Lymph % (Auto) 11 L (24-44) % [place] % (Auto) 9 H (2-6) % Eos % (Auto) 0 L (2-4) % Baso % (Auto) 0 (0-1) % Urine Color Yellow Urine Appearance Slightly cloudy Urine pH 7.0 (4.5-8.0) Ur Specific [place] 1.010 (1.008-1.030) Urine Protein Negative (NEGATIVE) mg/dL Urine Glucose (UA) Normal (NEGATIVE) mg/dL Urine Ketones Negative (NEGATIVE) mg/dL Urine Occult Blood Negative (NEGATIVE) Urine Nitrite Negative (NEGATIVE) Urine Bilirubin Negative (NEGATIVE) Urine Urobilinogen Normal (NORMAL) mg/dL Ur Leukocyte Esterase Large (NEGATIVE) Urine RBC Not seen (0-5) Urine WBC 20-30 H (0-5) Ur Epithelial Cells Many Amorphous Sediment Not seen Urine Bacteria Many Urine Mucus Not seen Urine Opiates Screen Negative (NEGATIVE) Ur Oxycodone Screen Negative (NEGATIVE) Urine Methadone Screen Negative (NEGATIVE) Ur Propoxyphene Screen Negative (NEGATIVE) Ur Barbiturates Screen Negative (NEGATIVE) Ur Tricyclics Screen Negative (NEGATIVE) Ur Phencyclidine Scrn Negative (NEGATIVE) Ur Amphetamine Screen Negative (NEGATIVE) U Methamphetamines Scrn Negative (NEGATIVE) Urine MDMA Screen Negative (NEGATIVE) U Benzodiazepines Scrn Negative (NEGATIVE) U Cocaine Metab Screen Negative (NEGATIVE) U Marijuana (THC) Screen Negative (NEGATIVE) Med Orders - Current: Current Medications Acetaminophen (Tylenol Bulk Bottle) 650 mg PO Q4H PRN PRN Reason: Pain (Mild 1-3) and fever Last Admin: 06/17/18 01:40 Dose: 650 mg Benzocaine (Muwl-S-Qizmnzp 20% [place]) 0 gm TOP Q4H PRN PRN Reason: Perineal Comfort Measure Last Admin: 06/17/18 01:41 Dose: 1 spr Docusate Sodium (Colace) 100 mg PO BID PRN PRN Reason: Constipation Last Admin: 06/17/18 07:25 Dose: 100 mg Emollient Ointment (Lansinoh Hpa) 1 gm TOP ASDIRECTED PRN PRN Reason: Sore Nipples Last Admin: 06/17/18 01:41 Dose: 1 applic Ropivacaine 200 mg/ Premix 100 mls @ 0 mls/hr EPIDUR ASDIRECTED [facility] Last Admin: 06/16/18 20:23 Dose: 12 mls/hr Oxytocin/Sodium Chloride (Pitocin In Ns 20 Units/1,000 Ml) 20 unit in 1,000 mls @ 6 mls/hr IV TITRATE [facility]; Protocol Ibuprofen (Motrin Bulk Bottle) 600 mg PO Q6H PRN PRN Reason: Pain Last Admin: 06/17/18 01:40 Dose: 600 mg Ondansetron HCl (Zofran) 4 mg IV Q4H PRN PRN Reason: Nausea/Vomiting Sodium Chloride (Saline Flush) 10 ml FLUSH ASDIRECTED PRN PRN Reason: Keep Vein Open Nikki Hsu (Tucks) 1 pad TOP ASDIRECTED PRN PRN Reason: Hemorrhoids Discontinued Medications Acetaminophen (Tylenol) 650 mg PO Q4H PRN PRN Reason: Pain (Mild 1-3) and fever Ephedrine Sulfate (Ephedrine Sulfate) 5 mg IVPUSH ONETIME ONE Stop: 06/16/18 17:26 Last Admin: 06/16/18 21:12 Dose: 5 mg Penicillin G Potassium 5 (millunits/ Sodium Chloride) 50 mls @ 100 mls/hr IV ONETIME ONE Stop: 06/16/18 11:29 Last Admin: 06/16/18 10:57 Dose: 100 mls/hr Penicillin G Potassium 2.5 (millunits/ Sodium Chloride) 50 mls @ 100 mls/hr IV Q4H [facility] Last Admin: 06/17/18 03:34 Dose: Not Given Lactated Ringer's (Ringers, Lactated) 1,000 mls @ 999 mls/hr IV ONETIME ONE Stop: 06/16/18 18:25 Last Admin: 06/16/18 18:53 Dose: 999 mls/hr Lactated Ringer's (Ringers, Lactated) 1,000 mls @ 0 mls/hr IV ASDIRECTED [facility] Last Admin: 06/16/18 20:24 Dose: 25 mls/hr Oxytocin/Sodium Chloride (Pitocin In Ns 20 Units/1,000 Ml) 20 unit in 1,000 mls @ 2,997 mls/hr IV ONETIME ONE; Protocol Stop: 06/17/18 00:16 Last Admin: 06/16/18 23:45 Dose: 999 munits/min, 2,997 mls/hr Misoprostol (Cytotec) 50 mcg VAG ONETIME ONE Stop: 06/16/18 07:01 Last Admin: 06/16/18 11:14 Dose: Not Given Misoprostol (Cytotec) Confirm Administered Dose 25 mcg .ROUTE .STK-MED ONE Stop: 06/16/18 09:51 Last Admin: 06/16/18 11:15 Dose: Not Given Misoprostol (Cytotec) 25 mcg VAG ONETIME STA Stop: 06/16/18 11:16 Last Admin: 06/16/18 10:00 Dose: 25 mcg Misoprostol (Cytotec) 50 mcg VAG ONETIME ONE Stop: 06/16/18 15:46 Last Admin: 06/16/18 15:57 Dose: 50 mcg - Infant Interaction Infant Disposition, : in Room with Family Infant Interaction: Not Interacting Feeding: Bottle Fed Support Person: Mother - Recovery Exam Fundal Tone: Firm Fundal Level: At Umbilicus Fundal Placement: Midline Lochia Amount: Small Lochia Color: Rubra/Red Perineum Description: Intact, Minimal Bruising/Swelling Bladder Status: Voiding - Exam General: Alert, Oriented HEENT: Pupils Equal Neck: Supple Lungs: Clear to Auscultation, Normal Respiratory Effort Cardiovascular: Regular Rate, Regular Rhythm GI/Abdominal Exam: Normal Bowel Sounds, Soft, Pelvis Stable Extremities: Normal Inspection, Normal Range of Motion, Non-Tender, No Pedal Edema, Normal Capillary Refill Skin: Warm, Dry, Intact Wound/Incisions: Healing Well Neurological: No New Focal Deficit Psy/Mental Status: Alert, Normal Affect, Normal Mood - Problem List & Annotations (1) Normal vaginal delivery SNOMED Code(s): 96556302 Code(s): O80 - ENCOUNTER FOR FULL-TERM UNCOMPLICATED DELIVERY Status: Acute Current Visit: Yes (2) Preeclampsia SNOMED Code(s): 288668605 Code(s): O14.90 - UNSPECIFIED PRE-ECLAMPSIA, UNSPECIFIED TRIMESTER Status: Acute Current Visit: Yes (3) Positive GBS test SNOMED Code(s): 1611486670998, 1555642205670 Code(s): B95.1 - STREPTOCOCCUS, GROUP B, CAUSING DISEASES CLASSD ELSWHR Status: Acute Current Visit: Yes (4) Gestational hypertension SNOMED Code(s): 669401101, 128451355 Code(s): O13.9 - GESTATIONAL HTN W/O SIGNIFICANT PROTEINURIA, UNSP TRIMESTER Status: Acute Current Visit: Yes Qualifiers: Trimester: third trimester Qualified Code(s): O13.3 - Gestational [ -induced] hypertension without significant proteinuria, third trimester - Problem List Review Problem List Initiated/Reviewed/Updated: Yes - Assessment Assessment:: 06/16/2018 22 yo G2 now P2 healthy normal male without complications Preeclampsia with proteinuria and edema Excess weight gain GBS positive Labs-A positive, Hep B neg, Hep C neg, HIV neg, RPR nonreactive, GBS positive 06/17/18 Doing well this morning blood pressures coming down, voiding large amounts and swelling is resolving HGB 10.6 this morning switched from breast to bottle feeding with baby - Plan Plan:: 06/16/2018 22 yo here at 40 0/7 gestational weeks for a medical induction due to gestational hypertensions, pre-eclampsia, elevated 24 hour protein, and 20+ weight gain in less than three weeks, on 06/16/2018 SVE-/-2 FHTs category one Contractions irregular Cytotec placed vaginally Plan- Monitor for active labor Monitor FHTs Monitor vital signs closely, reflexes and clonus regularly CBC, CMP,LDH, UA Pain management per patient request Plan on placing another cytotec later Plan and anticipate a vaginal delivery 06/16/2018 Routine cares 48 hour stay for GBS positive 06/17/18 Continue routine cares needs to ambulate today treated GBS but requires 48 hour stay. Planning discharge [place]
--- NOTE | 2018-06-18 08:38 | PCM.PNPP ---
- General Info Date of Service: 06/18/18 Functional Status: Reports: Pain Controlled - Review of Systems General: Reports: No Symptoms HEENT: Reports: No Symptoms Pulmonary: Reports: No Symptoms Cardiovascular: Reports: No Symptoms Gastrointestinal: Reports: No Symptoms Genitourinary: Reports: No Symptoms Musculoskeletal: Reports: No Symptoms Skin: Reports: No Symptoms Neurological: Reports: No Symptoms Psychiatric: Reports: No Symptoms - General Info Date of Service: 06/18/18 - Patient Data Vital Signs - Most Recent: Last Vital Signs Temp 36.8 C 06/18/18 07:26 Pulse 56 L 06/18/18 07:26 Resp 16 06/18/18 07:26 BP 128/86 06/18/18 07:26 Pulse Ox 99 06/18/18 07:26 Weight - Most Recent: 96.615 kg I&O - Last 24 Hours: Intake & Output 06/17/18 06/18/18 06/18/18 22:59 06:59 14:59 Intake Total 900 Balance 900 Med Orders - Current: Current Medications Acetaminophen (Tylenol Bulk Bottle) 650 mg PO Q4H PRN PRN Reason: Pain (Mild 1-3) and fever Last Admin: 06/17/18 01:40 Dose: 650 mg Benzocaine (Vtnp-W-Kqefwxi 20% [place]) 0 gm TOP Q4H PRN PRN Reason: Perineal Comfort Measure Last Admin: 06/17/18 01:41 Dose: 1 spr Docusate Sodium (Colace) 100 mg PO BID PRN PRN Reason: Constipation Last Admin: 06/17/18 07:25 Dose: 100 mg Emollient Ointment (Lansinoh Hpa) 1 gm TOP ASDIRECTED PRN PRN Reason: Sore Nipples Last Admin: 06/17/18 01:41 Dose: 1 applic Ropivacaine 200 mg/ Premix 100 mls @ 0 mls/hr EPIDUR ASDIRECTED CHRIS Last Admin: 06/16/18 20:23 Dose: 12 mls/hr Oxytocin/Sodium Chloride (Pitocin In Ns 20 Units/1,000 Ml) 20 unit in 1,000 mls @ 6 mls/hr IV TITRATE CHRIS; Protocol Ibuprofen (Motrin Bulk Bottle) 600 mg PO Q6H PRN PRN Reason: Pain Last Admin: 06/17/18 01:40 Dose: 600 mg Ondansetron HCl (Zofran) 4 mg IV Q4H PRN PRN Reason: Nausea/Vomiting Sodium Chloride (Saline Flush) 10 ml FLUSH ASDIRECTED PRN PRN Reason: Keep Vein Open Witned [place]su (Tucks) 1 pad TOP ASDIRECTED PRN PRN Reason: Hemorrhoids Discontinued Medications Acetaminophen (Tylenol) 650 mg PO Q4H PRN PRN Reason: Pain (Mild 1-3) and fever Ephedrine Sulfate (Ephedrine Sulfate) 5 mg IVPUSH ONETIME ONE Stop: 06/16/18 17:26 Last Admin: 06/16/18 21:12 Dose: 5 mg Penicillin G Potassium 5 (millunits/ Sodium Chloride) 50 mls @ 100 mls/hr IV ONETIME ONE Stop: 06/16/18 11:29 Last Admin: 06/16/18 10:57 Dose: 100 mls/hr Penicillin G Potassium 2.5 (millunits/ Sodium Chloride) 50 mls @ 100 mls/hr IV Q4H [facility] Last Admin: 06/17/18 03:34 Dose: Not Given Lactated Ringer's (Ringers, Lactated) 1,000 mls @ 999 mls/hr IV ONETIME ONE Stop: 06/16/18 18:25 Last Admin: 06/16/18 18:53 Dose: 999 mls/hr Lactated Ringer's (Ringers, Lactated) 1,000 mls @ 0 mls/hr IV ASDIRECTED [facility] Last Admin: 06/16/18 20:24 Dose: 25 mls/hr Oxytocin/Sodium Chloride (Pitocin In Ns 20 Units/1,000 Ml) 20 unit in 1,000 mls @ 2,997 mls/hr IV ONETIME ONE; Protocol Stop: 06/17/18 00:16 Last Admin: 06/16/18 23:45 Dose: 999 munits/min, 2,997 mls/hr Misoprostol (Cytotec) 50 mcg VAG ONETIME ONE Stop: 06/16/18 07:01 Last Admin: 06/16/18 11:14 Dose: Not Given Misoprostol (Cytotec) Confirm Administered Dose 25 mcg .ROUTE .STK-MED ONE Stop: 06/16/18 09:51 Last Admin: 06/16/18 11:15 Dose: Not Given Misoprostol (Cytotec) 25 mcg VAG ONETIME STA Stop: 06/16/18 11:16 Last Admin: 06/16/18 10:00 Dose: 25 mcg Misoprostol (Cytotec) 50 mcg VAG ONETIME ONE Stop: 06/16/18 15:46 Last Admin: 06/16/18 15:57 Dose: 50 mcg - Infant Interaction Infant Disposition, : in Room with Family Interaction: Not Interacting Infant Feeding: Bottle Fed Infant Support Person: Mother - Recovery Exam Fundal Tone: Firm Fundal Level: At Umbilicus Fundal Placement: Midline Lochia Amount: Small Lochia Color: Rubra/Red Perineum Description: Intact, Minimal Bruising/Swelling Episiotomy/Laceration: None Bladder Status: Voiding - Exam General: Alert, Oriented, Cooperative HEENT: Pupils Equal Neck: Supple Lungs: Clear to Auscultation, Normal Respiratory Effort Cardiovascular: Regular Rate, Regular Rhythm GI/Abdominal Exam: Normal Bowel Sounds, Soft, Non-Tender, No Organomegaly, No Distention, No Abnormal Bruit, No Mass, Pelvis Stable Extremities: Normal Inspection, Normal Range of Motion, Non-Tender, No Pedal Edema, Normal Capillary Refill Skin: Warm, Dry, Intact Wound/Incisions: Healing Well Neurological: No New Focal Deficit Psy/Mental Status: Alert, Normal Affect, Normal Mood - Problem List & Annotations (1) Gestational hypertension SNOMED Code(s): 637103118, 787322673 Code(s): O13.9 - GESTATIONAL HTN W/O SIGNIFICANT PROTEINURIA, UNSP TRIMESTER Status: Acute Current Visit: Yes Qualifiers: Trimester: third trimester Qualified Code(s): O13.3 - Gestational [ -induced] hypertension without significant proteinuria, third trimester (2) Headache SNOMED Code(s): 26941027 Code(s): R51 - HEADACHE Status: Acute Current Visit: Yes (3) Edema SNOMED Code(s): 512757136, 518462637 Code(s): R60.9 - EDEMA, UNSPECIFIED Status: Acute Current Visit: Yes Qualifiers: Edema type: gestational Trimester: third trimester Qualified Code(s): O12.03 - Gestational edema, third trimester (4) Abnormal weight gain during SNOMED Code(s): 513717020 Code(s): O26.00 - EXCESSIVE WEIGHT GAIN IN , UNSPECIFIED TRIMESTER Status: Acute Current Visit: Yes (5) SNOMED Code(s): 63009888 Code(s): Z34.90 - ENCNTR FOR SUPRVSN OF NORMAL , UNSP, UNSP TRIMESTER Status: Acute Current Visit: Yes Qualifiers: Weeks of gestation: 40 weeks Qualified Code(s): Z3A.40 - 40 weeks gestation of (6) Encounter for induction of labor SNOMED Code(s): 133627846 Code(s): Z34.90 - ENCNTR FOR SUPRVSN OF NORMAL , UNSP, UNSP TRIMESTER Status: Acute Current Visit: Yes (7) Normal vaginal delivery SNOMED Code(s): 90024894 Code(s): O80 - ENCOUNTER FOR FULL-TERM UNCOMPLICATED DELIVERY Status: Acute Current Visit: Yes (8) [place] placenta SNOMED Code(s): 42949801 Code(s): HXW4121 - Status: Acute Current Visit: No (9) Preeclampsia SNOMED Code(s): 154539366 Code(s): O14.90 - UNSPECIFIED PRE-ECLAMPSIA, UNSPECIFIED TRIMESTER Status: Acute Current Visit: Yes (10) Positive GBS test SNOMED Code(s): 0118772576012, 1160736408226 Code(s): B95.1 - STREPTOCOCCUS, GROUP B, CAUSING DISEASES CLASSD ELSWHR Status: Acute Current Visit: Yes - Problem List Review Problem List Initiated/Reviewed/Updated: Yes - Assessment Assessment:: 06/16/2018 22 yo G2 now P2 healthy normal male without complications Preeclampsia with proteinuria and edema Excess weight gain GBS positive Labs-A positive, Hep B neg, Hep C neg, HIV neg, RPR nonreactive, GBS positive 06/17/18 Doing well this morning blood pressures coming down, voiding large amounts and swelling is resolving HGB 10.6 this morning switched from breast to bottle feeding with baby 06/18/2018 Day Two Voiding and Passing gas Bottlefeeding and pumping breastmilk Fundus firm and bleeding decreasing Home tomorrow since GBS positive - Plan Plan:: 06/16/2018 22 yo here at 40 0/7 gestational weeks for a medical induction due to gestational hypertensions, pre-eclampsia, elevated 24 hour protein, and 20+ weight gain in less than three weeks, on 06/16/2018 SVE-1/70/-2 FHTs category one Contractions irregular Cytotec placed vaginally Plan- Monitor for active labor Monitor FHTs Monitor vital signs closely, reflexes and clonus regularly CBC, CMP,LDH, UA Pain management per patient request Plan on placing another cytotec later Plan and anticipate a vaginal delivery 06/16/2018 Routine cares 48 hour stay for GBS positive 06/17/18 Continue routine cares needs to ambulate today treated GBS but requires 48 hour stay. Planning discharge Sun morning 06/18/2018 Continue routine care Discharge home tomorrow
[2018-06-18] MEDS: Docusate Sodium 100 MG Cap PO PRN (12:50)
--- NOTE | 2018-06-19 08:09 | PCM.PNPP ---
- General Info Date of Service: 06/19/18 Functional Status: Reports: Pain Controlled - Review of Systems General: Reports: No Symptoms HEENT: Reports: No Symptoms Pulmonary: Reports: No Symptoms Cardiovascular: Reports: No Symptoms Gastrointestinal: Reports: No Symptoms Genitourinary: Reports: No Symptoms Musculoskeletal: Reports: No Symptoms Skin: Reports: No Symptoms Neurological: Reports: No Symptoms Psychiatric: Reports: No Symptoms - General Info Date of Service: 06/19/18 - Patient Data Vital Signs - Most Recent: Last Vital Signs Temp 36.8 C 06/19/18 07:38 Pulse 72 06/19/18 07:38 Resp 18 06/19/18 07:38 BP 131/76 06/19/18 07:38 Pulse Ox 99 06/19/18 07:38 Weight - Most Recent: 96.615 kg I&O - Last 24 Hours: Intake & Output 06/18/18 06/19/18 06/19/18 22:59 06:59 14:59 Intake Total 420 1200 700 Balance 420 1200 700 Med Orders - Current: Current Medications Acetaminophen (Tylenol Bulk Bottle) 650 mg PO Q4H PRN PRN Reason: Pain (Mild 1-3) and fever Last Admin: 06/17/18 01:40 Dose: 650 mg Benzocaine (Sjbk-E-Rhlonui 20% [place]) 0 gm TOP Q4H PRN PRN Reason: Perineal Comfort Measure Last Admin: 06/17/18 01:41 Dose: 1 spr Docusate Sodium (Colace) 100 mg PO BID PRN PRN Reason: Constipation Last Admin: 06/18/18 12:50 Dose: 100 mg Emollient Ointment (Lansinoh Hpa) 1 gm TOP ASDIRECTED PRN PRN Reason: Sore Nipples Last Admin: 06/17/18 01:41 Dose: 1 applic Ropivacaine 200 mg/ Premix 100 mls @ 0 mls/hr EPIDUR ASDIRECTED CHRIS Last Admin: 06/16/18 20:23 Dose: 12 mls/hr Oxytocin/Sodium Chloride (Pitocin In Ns 20 Units/1,000 Ml) 20 unit in 1,000 mls @ 6 mls/hr IV TITRATE CHRIS; Protocol Ibuprofen (Motrin Bulk Bottle) 600 mg PO Q6H PRN PRN Reason: Pain Last Admin: 06/17/18 01:40 Dose: 600 mg Ondansetron HCl (Zofran) 4 mg IV Q4H PRN PRN Reason: Nausea/Vomiting Sodium Chloride (Saline Flush) 10 ml FLUSH ASDIRECTED PRN PRN Reason: Keep Vein Open Witch Aracelis (Tucks) 1 pad TOP ASDIRECTED PRN PRN Reason: Hemorrhoids Discontinued Medications Acetaminophen (Tylenol) 650 mg PO Q4H PRN PRN Reason: Pain (Mild 1-3) and fever Ephedrine Sulfate (Ephedrine Sulfate) 5 mg IVPUSH ONETIME ONE Stop: 06/16/18 17:26 Last Admin: 06/16/18 21:12 Dose: 5 mg Penicillin G Potassium 5 (millunits/ Sodium Chloride) 50 mls @ 100 mls/hr IV ONETIME ONE Stop: 06/16/18 11:29 Last Admin: 06/16/18 10:57 Dose: 100 mls/hr Penicillin G Potassium 2.5 (millunits/ Sodium Chloride) 50 mls @ 100 mls/hr IV Q4H [facility] Last Admin: 06/17/18 03:34 Dose: Not Given Lactated Ringer's (Ringers, Lactated) 1,000 mls @ 999 mls/hr IV ONETIME ONE Stop: 06/16/18 18:25 Last Admin: 06/16/18 18:53 Dose: 999 mls/hr Lactated Ringer's (Ringers, Lactated) 1,000 mls @ 0 mls/hr IV ASDIRECTED [facility] Last Admin: 06/16/18 20:24 Dose: 25 mls/hr Oxytocin/Sodium Chloride (Pitocin In Ns 20 Units/1,000 Ml) 20 unit in 1,000 mls @ 2,997 mls/hr IV ONETIME ONE; Protocol Stop: 06/17/18 00:16 Last Admin: 06/16/18 23:45 Dose: 999 munits/min, 2,997 mls/hr Misoprostol (Cytotec) 50 mcg VAG ONETIME ONE Stop: 06/16/18 07:01 Last Admin: 06/16/18 11:14 Dose: Not Given Misoprostol (Cytotec) Confirm Administered Dose 25 mcg .ROUTE .STK-MED ONE Stop: 06/16/18 09:51 Last Admin: 01/20/19 11:15 Dose: Not Given Misoprostol (Cytotec) 25 mcg VAG ONETIME STA Stop: 06/16/18 11:16 Last Admin: 06/16/18 10:00 Dose: 25 mcg Misoprostol (Cytotec) 50 mcg VAG ONETIME ONE Stop: 06/16/18 15:46 Last Admin: 06/16/18 15:57 Dose: 50 mcg - Interaction Infant Disposition, : [place] in Room with Family Interaction: Not Interacting Infant Feeding: Bottle Fed Support Person: Mother - Recovery Exam Fundal Tone: Firm Fundal Level: 2 Fingerbreadths Below Umbilicus Fundal Placement: Midline Lochia Amount: Small Lochia Color: Rubra/Red Perineum Description: Intact, Minimal Bruising/Swelling Episiotomy/Laceration: None Bladder Status: Voiding - Exam General: Alert, Oriented HEENT: Pupils Equal Neck: Supple Lungs: Clear to Auscultation, Normal Respiratory Effort Cardiovascular: Regular Rate, Regular Rhythm GI/Abdominal Exam: Normal Bowel Sounds, Soft, Non-Tender, No Organomegaly, No Distention, No Abnormal Bruit, No Mass, Pelvis Stable Extremities: Normal Inspection, Normal Range of Motion, Non-Tender, No Pedal Edema, Normal Capillary Refill Skin: Warm, Dry, Intact Neurological: No New Focal Deficit Psy/Mental Status: Alert, Normal Affect, Normal Mood - Problem List & Annotations (1) Gestational hypertension SNOMED Code(s): 336323784, 868490388 Code(s): O13.9 - GESTATIONAL HTN W/O SIGNIFICANT PROTEINURIA, UNSP TRIMESTER Status: Acute Current Visit: Yes Qualifiers: Trimester: third trimester Qualified Code(s): O13.3 - Gestational [ -induced] hypertension without significant proteinuria, third trimester (2) Headache SNOMED Code(s): 98089839 Code(s): R51 - HEADACHE Status: Acute Current Visit: Yes (3) Edema SNOMED Code(s): 201124755, 166867824 Code(s): R60.9 - EDEMA, UNSPECIFIED Status: Acute Current Visit: Yes Qualifiers: Edema type: gestational Trimester: third trimester Qualified Code(s): O12.03 - Gestational edema, third trimester (4) Abnormal weight gain during SNOMED Code(s): 586838007 Code(s): O26.00 - EXCESSIVE WEIGHT GAIN IN , UNSPECIFIED TRIMESTER Status: Acute Current Visit: Yes (5) SNOMED Code(s): 21976848 Code(s): Z34.90 - ENCNTR FOR SUPRVSN OF NORMAL , UNSP, UNSP TRIMESTER Status: Acute Current Visit: Yes Qualifiers: Weeks of gestation: 40 weeks Qualified Code(s): Z3A.40 - 40 weeks gestation of (6) Encounter for induction of labor SNOMED Code(s): 481770925 Code(s): Z34.90 - ENCNTR FOR SUPRVSN OF NORMAL , UNSP, UNSP TRIMESTER Status: Acute Current Visit: Yes (7) Normal vaginal delivery SNOMED Code(s): 82476058 Code(s): O80 - ENCOUNTER FOR FULL-TERM UNCOMPLICATED DELIVERY Status: Acute Current Visit: Yes (8) [place] placenta SNOMED Code(s): 65552184 Code(s): RNF7815 - Status: Acute Current Visit: No (9) Preeclampsia SNOMED Code(s): 260925579 Code(s): O14.90 - UNSPECIFIED PRE-ECLAMPSIA, UNSPECIFIED TRIMESTER Status: Acute Current Visit: Yes (10) Positive GBS test SNOMED Code(s): 3453945325747, 0562172976135 Code(s): B95.1 - STREPTOCOCCUS, GROUP B, CAUSING DISEASES CLASSD ELSWHR Status: Acute Current Visit: Yes - Problem List Review Problem List Initiated/Reviewed/Updated: Yes - Assessment Assessment:: 06/16/2018 22 yo G2 now P2 healthy normal male infant without complications Preeclampsia with proteinuria and edema Excess weight gain GBS positive Labs-A positive, Hep B neg, Hep C neg, HIV neg, RPR nonreactive, GBS positive 06/17/18 Doing well this morning blood pressures coming down, voiding large amounts and swelling is resolving HGB 10.6 this morning switched from breast to bottle feeding with baby 06/18/2018 Day Two Voiding and Passing gas Bottlefeeding and pumping breastmilk Fundus firm and bleeding decreasing Home tomorrow since GBS positive 06/19/2018 Day Three Voiding and Passing gas BP is trending down, swelling decreasing, No more headaches Bottlefeeding and pumping breastmilk Fundus firm and bleeding decreasing Home today since GBS positive - Plan Plan:: 06/16/2018 22 yo here at 40 0/7 gestational weeks for a medical induction due to gestational hypertensions, pre-eclampsia, elevated 24 hour protein, and 20+ weight gain in less than three weeks, on 06/16/2018 SVE-1/70/-2 FHTs category one Contractions irregular Cytotec placed vaginally Plan- Monitor for active labor Monitor FHTs Monitor vital signs closely, reflexes and clonus regularly CBC, CMP,LDH, UA Pain management per patient request Plan on placing another cytotec later Plan and anticipate a vaginal delivery 06/16/2018 Routine cares 48 hour stay for GBS positive 06/17/18 Continue routine cares needs to ambulate today treated GBS but requires 48 hour stay. Planning discharge 06/18/2018 Continue routine care Discharge home tomorrow 06/19/2018 Continue routine cares Continue to encourage pumping and bottlefeeding To discharge home today To see me Sunday for follow up in clinic on BP and 6 weeks for visit
== END 2018-06-19 11:30 | disposition home or self-care (01) | DRG 807 ==
LOC: JP.OB 06:29 → OBSVTOIN 23:28 → JP.MS 23:29
PROVIDERS: ADMIT Advanced Practice Midwife; ATTEND Advanced Practice Midwife
PROC: 10E0XZZ Delivery of Products of Conception, External Approach (ICD-10-PCS; principal; 2018-06-16)
PROC: 3E0P7VZ Introduction of Hormone into Female Reproductive, Via Natural or Artificial Opening (ICD-10-PCS; 2018-06-16)
PROC: 3E033VJ Introduction of Other Hormone into Peripheral Vein, Percutaneous Approach (ICD-10-PCS; 2018-06-16)
PROC: 00HU33Z Insertion of Infusion Device into Spinal Canal, Percutaneous Approach (ICD-10-PCS; 2018-06-16)
DX: O13.4 Gestational [pregnancy-induced] hypertension without significant proteinuria, complicating childbirth (principal); Z37.0 Single live birth; O43.199 Other malformation of placenta, unspecified trimester; O14.94 Unspecified pre-eclampsia, complicating childbirth; O26.00 Excessive weight gain in pregnancy, unspecified trimester; O99.824 Streptococcus B carrier state complicating childbirth; O12.24 Gestational edema with proteinuria, complicating childbirth; O12.04 Gestational edema, complicating childbirth; O99.52 Diseases of the respiratory system complicating childbirth; O99.89 Other specified diseases and conditions complicating pregnancy, childbirth and the puerperium; Z3A.40 40 weeks gestation of pregnancy; J45.909 Unspecified asthma, uncomplicated; F90.9 Attention-deficit hyperactivity disorder, unspecified type; R51 Headache; Z91.018 Allergy to other foods
CPT/HCPCS: 36415; 51702; 59409; 80053; 80305-QW; 81001; 83615; 84550; 85025; A9270-GY; J2540; J2590; J2795; J7050; J7120

== ENCOUNTER 2018-12-29 19:08 | Emergency (ER) | payer MEDICAID ==
[2018-12-29] MEDS ORDERED: Alum Hydrox/Mag Hydrox/Simeth 15 ML, Lidocaine 2% 15 ML PO ONE ×2 (19:35)
--- NOTE | 2018-12-29 19:38 | EDM.PDOC ---
ED HPI GENERAL MEDICAL PROBLEM - General Chief Complaint: Chest Pain Stated Complaint: SOB CHEST PAINS Time Seen by Provider: 12/29/18 19:26 Source of Information: Reports: Patient History Limitations: Reports: No Limitations - History of Present Illness INITIAL COMMENTS - FREE TEXT/NARRATIVE: states she has chest pain; substernal and left lateral Ongoing for a couple of weeks Has been seen for this in and they told her to use her inhaler more. 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 Pain Score (Numeric/FACES): 8 - Related Data Allergies Allergy/AdvReac Type Severity Reaction Status Date / Time blueberry Allergy Swelling Verified 12/29/18 19:19 Home Meds: Home Meds Albuterol [Ventolin HFA] 2 puff INH BID PRN 08/20/17 [History] Past Medical History HEENT History: Reports: Otitis Media Respiratory History: Reports: Asthma [employer]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: Musculoskeletal History: Reports: Other (See Below) Other Musculoskeletal History: acute back pain s/p fall at work on Sunday morning Psychiatric History: Reports: ADHD - Infectious Disease History Infectious Disease History: Reports: Chicken Pox - Past Surgical History HEENT Surgical History: Reports: Myringotomy w Tube(s) Respiratory Surgical History: Reports: None Social & Family History - Family History Family Medical History: Noncontributory - Tobacco Use Smoking Status *Q: Former Smoker Used Tobacco, but Quit: Yes Month/Year Tobacco Last Used: 4 Tobacco Use Comment: quit 2 weeks ago - Caffeine Use Caffeine Use: Reports: Energy Drinks, Soda - Recreational Drug Use Recreational Drug Use: No ED ROS GENERAL - Review of Systems Review Of Systems: See Below Constitutional: Reports: Decreased Appetite HEENT: Reports: No Symptoms Respiratory: Reports: Pleuritic Chest Pain Cardiovascular: Reports: No Symptoms GI/Abdominal: Reports: No Symptoms Skin: Reports: No Symptoms Neurological: Reports: No Symptoms Psychiatric: Reports: No Symptoms ED EXAM, GENERAL - Physical Exam Exam: See Below Exam Limited By: No Limitations General Appearance: Alert, WD/WN, No Apparent Distress Nose: Normal Inspection Throat/Mouth: Normal Inspection, Normal Oropharynx Head: Atraumatic, Normocephalic Neck: Normal Inspection, Supple, Non-Tender, Full Range of Motion Respiratory/Chest: No Respiratory Distress, Lungs Clear, Normal Breath Sounds, Other (subternal pain and left lateral pain with inspiration) Cardiovascular: Regular Rate, Rhythm GI/Abdominal: Normal Bowel Sounds Extremities: Normal Inspection, Normal Range of Motion Neurological: Alert, Oriented, CN II-XII Intact, Normal Cognition, Normal Gait Psychiatric: Normal Affect, Normal Mood Skin Exam: Warm, Dry, Intact, Normal Color Course - Vital Signs Last Recorded V/S: Last Vital Signs Temp 96.1 F 12/29/18 19:22 Pulse 66 12/29/18 19:22 Resp 18 12/29/18 19:22 BP 140/67 12/29/18 19:22 Pulse Ox 97 12/29/18 19:22 - Orders/Labs/Meds Orders: Active Orders 24 hr Category Date Time Status Chest 2V [CR] Stat Exams 12/29/18 19:33 Taken Meds: Medications Discontinued Medications Generic Name Dose Route Start Last Admin Trade Name Piero PRN Reason Stop Dose Admin Al Hydroxide/Mg Hydroxide 15 0 ml 12/29/18 19:35 12/29/18 19:42 ml/ Lidocaine HCl 15 ml PO 12/29/18 19:36 30 ml ONETIME ONE Administration - Re-Assessments/Exams Free Text/Narrative Re-Assessment/Exam: 12/29/18 20:03 Reviewed xray with her GI cocktail was helpful She is requesting a work note. Departure - Departure Time of Disposition: 19:56 Disposition: Home, Self-Care 01 Condition: Good Clinical Impression: Chest wall pain - Discharge Information *PRESCRIPTION DRUG MONITORING PROGRAM REVIEWED*: Not Applicable *COPY OF PRESCRIPTION DRUG MONITORING REPORT IN PATIENT IQRA: Not Applicable Instructions: Chest Wall Pain Referrals: Juani Escobar CNM [Primary Care Provider] - Forms: ED Department Discharge Additional Instructions: Drink plenty of water Tylenol 500 mg every 6 hours for pain as needed Ibuprofen 600 mg every 6 hours as needed for pain Limit your use of inhaler to no more than 1-2 puffs every 4 hours as needed for shortness of breath Follow up with your doctor if your pain persists. - Problem List & Annotations (1) Chest wall pain SNOMED Code(s): 694881192 Code(s): R07.89 - OTHER CHEST PAIN Status: Acute Priority: Low Current Visit: Yes - My Orders Last 24 Hours: My Active Orders 12/29/18 19:33 Chest 2V [CR] Stat - Assessment/Plan Last 24 Hours: My Active Orders 12/29/18 19:33 Chest 2V [CR] Stat
--- NOTE | 2018-12-29 20:26 | CRLCR ---
HISTORY: Chest pain. TECHNIQUE: Two views of the chest. COMPARISON: No prior. FINDINGS: The cardiac size and pulmonary vasculature are within normal limits. There is no acute lung infiltrate or pulmonary edema. No pneumothorax or pleural effusion. No acute bony abnormality. IMPRESSION: No acute disease. Dictated by Russ De Los Santos MD @ 12/29/2018 8:24:37 PM Dictated by: Russ De Los Santos MD @ 12/29/2018 20:24:42 (Electronically Signed)
== END 2018-12-29 20:09 | disposition home or self-care (01) ==
LOC: JP.ED 19:08
DX: R07.89 Other chest pain (principal); J45.909 Unspecified asthma, uncomplicated; Z87.891 Personal history of nicotine dependence; Z91.018 Allergy to other foods; Z79.899 Other long term (current) drug therapy
CPT/HCPCS: 71046; 99284; A9270; 99283

== ENCOUNTER 2020-01-13 09:27 | Inpatient (IN) | payer MEDICAID ==
[2020-01-13] MEDS ORDERED: Sodium Chloride 0.9% 10 ML Syringe FLUSH PRN (10:15)
[2020-01-13] MEDS ORDERED: Sodium Chloride 0.9% 1,000 ML IV ONE (10:17)
--- NOTE | 2020-01-13 10:49 | PCM.LDHP ---
L&D History of Present Illness - General Date of Service: 01/13/20 Admit Problem/Dx: Admission Diagnosis/Problem Admission Diagnosis/Problem Source of Information: Patient History Limitations: Reports: No Limitations - History of Present Illness Introduction:: 01/13/20 24 yo at 37 1/7 weeks due to leaking fluid and continuous contractions. Amnisure is negative. She is having intermittent contractions. FHT's baseline around 110 with moderate variability and accelerations with no decelerations. She is A pos blood type, Rubella immune, GBS neg, HIV/Hep B & C/RPR all non reactive. This is the patients 6th visit to OB triage in the last several weeks. She has noticed decreased movement and there has been a change in the baby's baseline HR of unknown significance. In office FHR generally 140-160 and now baseline is 110 and occasionally HR dips to below 100. Given her ongoing complaints and change in baseline and decreased movement we have decided to do a section today. She has been fully counseled on version and has declined this. Risks of 37 week baby reviewed with mother including feeding and breathing problems. Patient understands this and would like to proceed with section. There is also some slight cervical change from last evenings check, SVE 1.5/50/-2. Timing/Duration: Reports: intermittent Location, : Reports: Lower back Severity: Moderate Improves with: Reports: None Worsens with: Reports: None Associated Symptoms: Reports: N - Related Data Allergies/Adverse Reactions: Allergies Allergy/AdvReac Type Severity Reaction Status Date / Time blueberry Allergy Swelling Verified 12/29/18 19:19 Home Medications: Home Meds Albuterol [Ventolin HFA] 2 puff INH BID PRN 08/20/17 [History] No122/Iron/Folic Acid [ Multi Tablet] 1 tab-cap PO DAILY 11/10/19 [History] Sertraline [Zoloft] 50 mg PO DAILY 11/10/19 [History] ondansetron HCL [Zofran] 4 mg PO Q8H PRN 11/10/19 [History] polyethylene glycoL 3350 [MiraLAX] 17 gm PO ASDIRECTED PRN 11/10/19 [History] metroNIDAZOLE [Flagyl] 500 mg PO BID 7 Days #14 tablet 01/01/20 [Rx] metroNIDAZOLE [Flagyl] 500 mg PO Q12H 7 Days #14 tab 01/05/20 [Rx] Past Medical History HEENT History: Reports: Otitis Media Respiratory History: Reports: Asthma 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 Para: 2 LMP (Approximate): Musculoskeletal History: Reports: Other (See Below) Other Musculoskeletal History: acute back pain s/p fall at work on Sunday morning Psychiatric History: Reports: ADHD - Infectious Disease History Infectious Disease History: Reports: Chicken Pox - Past Surgical History HEENT Surgical History: Reports: Myringotomy w Tube(s) Respiratory Surgical History: Reports: None Social & Family History - Family History Family Medical History: Noncontributory - Caffeine Use Caffeine Use: Reports: Energy Drinks, Soda H&P Review of Systems - Review of Systems: Review Of Systems: See Below General: Reports: No Symptoms HEENT: Reports: No Symptoms Pulmonary: Reports: No Symptoms Cardiovascular: Reports: No Symptoms Gastrointestinal: Reports: No Symptoms Genitourinary: Reports: No Symptoms Musculoskeletal: Reports: No Symptoms Skin: Reports: No Symptoms Psychiatric: Reports: No Symptoms Neurological: Reports: No Symptoms Hematologic/Lymphatic: Reports: No Symptoms Immunologic: Reports: No Symptoms L&D Exam - Exam Exam: See Below - Vital Signs Vital Signs: Last Vital Signs Temp 37.3 C 01/13/20 09:58 Pulse 69 01/13/20 09:58 Resp 20 01/13/20 09:58 BP 116/76 01/13/20 09:58 Pulse Ox 98 01/13/20 09:58 Weight: 79.379 kg - OB Specific Contraction Intensity: Mild to Moderate Movement: Active Heart Tones: Present Heart Tones per Min: 110 Heart Rate (FHR) Variability: Moderate (6-25 bmp) Presentation: Breech - Brannon Score Brannon Score Cervix Position: Posterior Brannon Score Consistency: Soft Brannon Score Effacement: 31-50% Brannon Score Dilation: 1-2 cm Brannon Score Infant's Station: -2 Brannon Score Total: 5 - Exam General: Alert, Oriented HEENT: PERRLA, Conjunctiva Clear, EACs Clear, EOMI, Hearing Intact, Mucosa Moist & Igo, Nares Patent, Normal Nasal Septum, Posterior Pharynx Clear, Pupils Equal, Pupils Reactive, TMs Clear Neck: Supple, Trachea Midline Lungs: Clear to Auscultation, Normal Respiratory Effort Cardiovascular: Regular Rate, Regular Rhythm, Other ( aquired murmur) GI/Abdominal Exam: Normal Bowel Sounds, Soft, Non-Tender, No Organomegaly, No Distention, No Abnormal Bruit, No Mass, Pelvis Stable Rectal Exam: Normal Exam, Normal Rectal Tone Genitourinary: Normal external exam, Normal bimanual exam, Cervical dilitation, Enlarged uterus Back Exam: Normal Inspection, Full Range of Motion Extremities: Normal Inspection, Normal Range of Motion, Non-Tender, No Pedal Edema, Normal Capillary Refill Skin: Warm, Dry, Intact Neurological: Cranial Nerves Intact, Reflexes Equal Bilateral Psychiatric: Alert, Normal Affect, Normal Mood - Patient Data Lab Results Last 24 hrs: Laboratory Results - last 24 hr 01/13/20 01/13/20 Range/Units 09:42 09:43 Urine Color Yellow (YELLOW) Urine Appearance Slightly cloudy A (CLEAR) Urine pH 7.0 (5.0-8.0) Ur Specific [place] 1.020 (1.008-1.030) Urine Protein Negative (NEGATIVE) mg/dL Urine Glucose (UA) Negative (NEGATIVE) mg/dL Urine Ketones Negative (NEGATIVE) mg/dL Urine Occult Blood Negative (NEGATIVE) Urine Nitrite Negative (NEGATIVE) Urine Bilirubin Negative (NEGATIVE) Urine Urobilinogen 0.2 (0.2-1.0) EU/dL Ur Leukocyte Esterase Small H (NEGATIVE) Urine RBC Not seen (0-5) Urine WBC 10-20 H (0-5) Ur Epithelial Cells Few Amorphous Sediment Not seen Urine Bacteria Many Urine Mucus Not seen Membrane Rupture Negative (NEGATIVE) - Problem List (1) Decreased movement during SNOMED Code(s): 918301330 ICD Code: O36.8190 - DECREASED MOVEMENTS, UNSP TRIMESTER, UNSP Status: Acute Current Visit: Yes (2) Term SNOMED Code(s): 20831305 ICD Code: Z34.90 - ENCNTR FOR SUPRVSN OF NORMAL , UNSP, UNSP TRIMESTER Status: Acute Current Visit: Yes (3) Breech presentation of fetus SNOMED Code(s): 2229612 ICD Code: O32.1XX0 - MATERNAL CARE FOR BREECH PRESENTATION, UNSP Status: Acute Current Visit: Yes Problem List Initiated/Reviewed/Updated: Yes Orders Last 24hrs: Active Orders 24 hr Category Date Time Status OB Check [OM.PC] Click to Edit Care 01/13/20 09:37 Ordered Peripheral IV Care [RC] . DIRECTED Care 01/13/20 10:15 Active CORONAVIRUS COVID-19, [facility] 01/13/20 10:18 Ordered Sodium Chloride 0.9% [Normal Saline] 1,000 ml Med 01/13/20 10:17 Active IV .BOLUS Sodium Chloride 0.9% [Saline Flush] Med 01/13/20 10:15 Active 10 ml FLUSH ASDIRECTED PRN cefTRIAXone [Rocephin] 1 gm Med 01/13/20 11:00 Active Sodium Chloride 0.9% [Normal Saline] 50 ml IV ONETIME Peripheral IV Insertion Adult [OM.PC] Routine Oth 01/13/20 10:15 Ordered Medication Orders Ceftriaxone Sodium 1 gm/ (Sodium Chloride) 50 mls @ 100 mls/hr IV ONETIME ONE Stop: 01/13/20 11:29 Last Admin: 01/13/20 10:42 Dose: 100 mls/hr Documented by: MIO Sodium Chloride (Normal Saline) 1,000 mls @ 999 mls/hr IV .BOLUS ONE Stop: 01/13/20 11:17 Last Admin: 01/13/20 10:31 Dose: 999 mls/hr Documented by: NIR Sodium Chloride (Saline Flush) 10 ml FLUSH ASDIRECTED PRN PRN Reason: Keep Vein Open Assessment/Plan Comment:: 01/13/20 Assessment: 37 1/7 weeks proceeding with section due to decrease in HR baseline, breech presentation, continuous contractions UTI, BV Plan: Planning for non urgent primary section today
[2020-01-13] MEDS ORDERED: cefTRIAXone 1 GM in Sodium Chloride 0.9% 50 ML IV ONE (11:00)
[2020-01-13] MEDS ORDERED: Sodium Chloride 0.9% 30 ML ONE (11:14)
[2020-01-13] MEDS: cefOXitin 1 GM Vial ONE ×2 (12:27→14:32)
[2020-01-13] MEDS: Oxytocin 10 Units/1 ML SDV ONE ×2 (12:27→14:08)
[2020-01-13] MEDS ORDERED: Ampicillin/Sulbactam Na 3 GM Vial ONE (14:01)
[2020-01-13] MEDS ORDERED: ePHEDrine 50 MG/ML SDV ONE (14:01)
[2020-01-13] MEDS ORDERED: cefOXitin 2 GM Vial ONE (14:02)
[2020-01-13] MEDS ORDERED: Ondansetron 4 MG/2 ML SDV ONE (14:05)
[2020-01-13] MEDS ORDERED: HYDROmorphone/Normal Saline 15 MG/30 ML PCA IV PRN (14:55)
[2020-01-13] MEDS ORDERED: diphenhydrAMINE 50 MG/ML SDV IVPUSH PRN ×2 (14:55→18:54)
[2020-01-13] MEDS ORDERED: diphenhydrAMINE 25 MG Cap PO PRN ×2 (14:55→18:54)
[2020-01-13] MEDS ORDERED: Naloxone 0.4 MG/ML SDV IVPUSH PRN ×2 (14:55→18:54)
[2020-01-13] MEDS ORDERED: Ondansetron 4 MG/2 ML SDV IVPUSH PRN (14:55)
[2020-01-13] MEDS ORDERED: Naloxone 0.4 MG/ML SDV IV PRN (16:00)
[2020-01-13] MEDS ORDERED: Ampicillin/Sulbactam Na 3 GM in Sodium Chloride 0.9% 100 ML IV SCH (16:00)
[2020-01-13] MEDS: Ondansetron 4 MG/2 ML SDV IVPUSH PRN ×2 (17:29→22:07)
[2020-01-13] MEDS: Ibuprofen 400 MG Tab PO SCH ×2 (17:33→22:55)
[2020-01-13] MEDS: Acetaminophen 500 MG Tab PO SCH ×2 (17:33→22:55)
[2020-01-13] MEDS ORDERED: Metoclopramide 10 MG/2 ML SDV IV ONE (18:52)
[2020-01-13] MEDS ORDERED: fentaNYL/Normal Saline 600 MCG/30 ML PCA Vial IV SCH (19:00)
[2020-01-13] MEDS: Dextrose 5%-Lactated Ringers 1,000 ML IV SCH (19:09)
[2020-01-13] MEDS: Ampicillin/Sulbactam Na 3 GM in Sodium Chloride 0.9% 100 ML IV SCH (19:54)
[2020-01-14] MEDS: Dextrose 5%-Lactated Ringers 1,000 ML IV SCH ×2 (01:08→05:03)
[2020-01-14] MEDS: Acetaminophen 500 MG Tab PO SCH ×2 (03:08→09:54)
[2020-01-14] MEDS: Ibuprofen 400 MG Tab PO SCH ×2 (03:08→09:54)
[2020-01-14] MEDS: Ampicillin/Sulbactam Na 3 GM in Sodium Chloride 0.9% 100 ML IV SCH ×3 (03:09→13:46)
[2020-01-14] MEDS ORDERED: Dextrose 5%-Lactated Ringers 1,000 ML IV SCH (07:23)
[2020-01-14] MEDS: oxyCODONE 5 MG Tab PO PRN ×2 (07:40→13:46)
[2020-01-14] MEDS ORDERED: Docusate Sodium 100 MG Cap PO SCH (09:00)
--- NOTE | 2020-01-14 12:35 | PN ---
DATE OF SERVICE: 01/14/2020 SUBJECTIVE: Daniela had a yesterday. 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 Vital signs have been stable. Oral intake 500. Urine output via Ríos catheter 960. She has no other questions or concerns. OBJECTIVE: GENERAL: Daniela Andres is a pleasant 24-year-old female. She is alert and orientated. VITAL SIGNS: TPR at 0700 was 98.2, 55, 16, blood pressure 106/78. HEENT: Negative. NECK: Supple. HEART: Regular rate and rhythm. LUNGS: Clear. ABDOMEN: Incision is glued. Abdominal binder is on. EXTREMITIES: Without peripheral edema. ASSESSMENT: 1. . 2. Excision of portion of possible pelvic endometriosis 1.5 cm. POSTOPERATIVE DIAGNOSES: 1. Term in labor with breech presentation. 2. 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 DATE OF SURGICAL PROCEDURE: 01/13/2020. SURGEON: Rikki Shepherd MD. PLAN: 1. Alternate Tylenol and Motrin as previously ordered, oxycodone 5 mg every 6 hours p.r.n. pain. 2. Discontinue FOOD SUPERVISOR. 3. Regular diet. 4. Discontinue Ríos catheter. 5. Colace 100 mg b.i.d. The patient is requesting to be discharged later today, pending Denae Ceron CNM recommendations. We will discharge if okay with Denae Ceron. Crista Gallegos PA-C /[id number]
--- NOTE | 2020-01-14 20:35 | DISCH ---
ADMISSION DIAGNOSES: 1. Term in labor with breech presentation. 2. Rupture of membranes. DISCHARGE DIAGNOSES: 1. section. 2. Excision of portion of possible pelvic endometriosis, 1.5 cm. POSTOPERATIVE DIAGNOSES: 1. Term in labor with breech presentation. 2. 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 Date of surgical procedure 01/13/2020. Surgeon: Rikki Shepherd MD. HISTORY: Daniela is a 3, para 2 whose membranes ruptured at home and she was to have a . After preoperative evaluation and discussion of possible risks and possible complications, she wished to proceed with surgical procedure. HOSPITAL COURSE: Daniela had her surgery on 01/13/2020. She had no operative complications. On postoperative day #1, she was discharged. Her pain was controlled. Her activity was good. Oral intake and output adequate. She chose to see her baby who is in [place], [place]. OBJECTIVE: GENERAL: Daniela Andres is a pleasant 24-year-old female. VITAL SIGNS: Height 5 feet 8.11 inches. Weight is 175 pounds. TPR at 1100 is 97.8, 60, 16. Blood pressure 105/87. HEENT: Negative. NECK: Supple. HEART: Regular rate and rhythm. LUNGS: Clear. ABDOMEN: Incisions glued. EXTREMITIES: Without peripheral edema. DISPOSITION: Discharged to home. CONDITION: Stable and improving. FOLLOWUP APPOINTMENT: With Crista Gallegos PA-C on 01/22/2020 at 11:30 a.m. and with Juani Escobar, certified nurse central station operator in 6 weeks and to call for appointment. HOME MEDICATIONS: 1. Augmentin 875 mg 1 tablet b.i.d. #14. 2. Colace 100 mg p.o. b.i.d., #100. 3. Oxycodone 5 mg q.6 hours p.r.n. pain, #28. 4. Tylenol Extra Strength 1000 mg p.o. q.6 hours, #100 for pain. 5. Ferrous fumarate 1 tablet p.o. daily, #90. To resume her home medications of; 1. Zoloft 50 mg p.o. daily. 2. MiraLAX 17 g p.o. p.r.n. 3. vitamins 1 daily. DIET: Usual diet as tolerated. Drink 8 to 10 glasses of water a day. ACTIVITY: No lifting greater than 10 pounds for 6 weeks and no lifting greater than baby in car seat. Driving: Do not drive for 1 week and while on narcotic pain medication. Shower/bathing: May shower. No tub bathing or swimming for 6 weeks. Keep operative site clean and dry. Wear abdominal binder for 4 weeks if tolerated. Notify provider if any fever, increased pain, swelling, redness, drainage, nausea or vomiting.
--- NOTE | 2020-01-25 11:23 | OR ---
DATE OF PROCEDURE: 01/13/2020 SURGEON: Rikki Shepherd MD PREOPERATIVE DIAGNOSIS: Term , in labor with breech presentation. POSTOPERATIVE DIAGNOSES: 1. Term , in labor with breech presentation. 2. 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 OPERATIVE PROCEDURES: 1. section (45217). 2. Excision of portion of probable pelvic endometriosis (44766). ANESTHESIA: Spinal. INDICATION FOR PROCEDURE: This is a 24-year-old female, presenting in labor and is confirmed to have a breech presentation. Plan is therefore to proceed with a section. Potential risks of the procedure including bleeding, infection, injury to mother and her baby were all reviewed, and she wishes to proceed. DETAILS OF PROCEDURE: The patient was taken to the operating room and placed in a supine position with a roll underneath the right hip after spinal anesthetic was induced and a Ríos catheter was then inserted. The abdomen was then prepped and draped. A standard Pfannenstiel-type incision was made and carried down through the skin, subcutaneous tissue, and through the rectus sheath. Subrectus sheath flaps were then raised superiorly and inferiorly and the midline peritoneum and musculature were then . The peritoneal reflection of the bladder onto the uterus was then divided and reflected downward. Transverse lower uterine incision was made and the amniotic fluid was clear. The baby was in a breech presentation with the face facing backward. This was rotated slightly to get the face little bit more sideways and was delivered through breech presentation otherwise without difficulty. During the course of the removal, did appear to inhale some of the amniotic fluid. The cord was then cut and clamped, routine care given off the field per Denae Ceron CNM. The placenta and membranes were then delivered without difficulty. The patient was given IV and intrauterine oxytocin and IV cefoxitin. I did not notice this, but during inspection of the placenta by Denae Ceron, it was noted to be quite malodorous suggestive of some infection within the placenta. At that point, the uterus was then closed with 2 layers of 2-0 Vicryl stitch as was the peritoneal reflection of the bladder onto the uterus. As the uterus was placed back into the peritoneal cavity, there was scattered area of nodularity in the area posterior to the uterus more or less just lateral to the uterosacral ligament that was suggestive of some endometriosis. To confirm this, 1.5 cm section of this was excised for histologic evaluation. At this point, no further problems were noted. With the uterus back in place, the midline musculature was approximated with a #2 Vicryl stitch as was the anterior rectus sheath. Subcutaneous tissue approximated with some 3-0 Vicryl stitch and the skin with a 4- 0 Vicryl subcuticular stitch and surgical glue. Prior to closure of the subcutaneous tissue, it was irrigated with cefoxitin- containing saline solution. There were no other complications. The patient was taken to the recovery room in satisfactory condition. The newly born male did have some respiratory issues and was taken to the unit for further care. Denae Ceron CNM assisting in this case as ECOG recommendations recommend a administrative assistant coordinator in a section. Rikki Shepherd MD /[id number]
== END 2020-01-14 15:00 | disposition home or self-care (01) | DRG 788 ==
LOC: JP.OBCHECK 09:27 → JP.OB 10:56 → OBSVTOIN 14:07 → JP.OB 14:07 → JP.MS 15:30
PROVIDERS: ADMIT Advanced Practice Midwife; ATTEND Surgery
PROC: 10D00Z1 Extraction of Products of Conception, Low, Open Approach (ICD-10-PCS; principal; 2020-01-13)
PROC: 0UB90ZZ Excision of Uterus, Open Approach (ICD-10-PCS; 2020-01-13)
DX: O76 Abnormality in fetal heart rate and rhythm complicating labor and delivery (principal); O36.8130 Decreased fetal movements, third trimester, not applicable or unspecified; Z37.0 Single live birth; Z3A.37 37 weeks gestation of pregnancy; O32.1XX0 Maternal care for breech presentation, not applicable or unspecified; O99.89 Other specified diseases and conditions complicating pregnancy, childbirth and the puerperium; N80.0 Endometriosis of uterus; Z11.59 Encounter for screening for other viral diseases
CPT/HCPCS: 36415; 59409; 80305-QW; 81001; 84112; 85025; 85027; 86850; 86900; 86901; 88304; 88307; 94762; 99211; A9270-GY; J0295; J0694; J0696; J1170; J2405; J2590; J2765; J3010; J7030; J7050; J7121; U0002